=== PATIENT | male | born 1960 | race Caucasian/White ===

== ENCOUNTER 2018-04-05 10:06 | Inpatient (IN) ==
--- NOTE | 2018-04-05 10:23 | Emergency Department Note ---
Disposition Clinical Impression: Altered mental status Qualifiers: Altered mental status type: unspecified Qualified Code(s): R41.82 - Altered mental status, unspecified Disposition: Admitted As Inpatient Condition: Fair [facility] Provider[facility] - Forms: ED Satisfaction Letter Time of Disposition: 13:06 Altered Mental Status HPI - General Chief Complaint: ED Altered Mental Status Stated Complaint: confusion Time Seen by Provider: 04/05/18 10:09 Source: EMS Mode of arrival: EMS Limitations: altered mental status Nursing Notes Reviewed: Yes Vital Signs Reviewed: Yes - History of Present Illness HPI Narrative: 57 year old white male presents from the [facility] for [facility] for confusion. Cannot get any history from patient due to altered mental status. EMS states patient comes in for confusion with elevated blood pressure, they cannot provide any other history. - Related Data Home Medications Medication Instructions Recorded Confirmed Aspirin Enteric Coated [Aspirin EC] 81 mg PO DAILY 04/05/18 04/05/18 Benztropine [Cogentin] 1 mg PO BID 04/05/18 04/05/18 Bisacodyl [Woman's Laxative] 5 mg PO DAILY PRN 04/05/18 04/05/18 Cholecalciferol (D-3) [Vitamin D] 3,000 unit PO DAILY 04/05/18 04/05/18 Docusate [Colace] 100 mg PO BID 04/05/18 04/05/18 Lisinopril [Zestril] 10 mg PO DAILY 04/05/18 04/05/18 Multivitamin [One Daily Essential] 1 tab PO DAILY 04/05/18 04/05/18 Perphenazine 28 mg PO HS 04/05/18 04/05/18 Polyethylene Glycol 3350 [MiraLAX] 17 gm PO DAILY 04/05/18 04/05/18 amLODIPine [Norvasc] 5 mg PO DAILY 04/05/18 04/05/18 cloZAPine [Clozapine] 400 mg PO HS 04/05/18 04/05/18 cloZAPine [Clozaril] 150 mg PO QAM 04/05/18 04/05/18 clonazePAM [Klonopin] 1 mg PO HS PRN 04/05/18 04/05/18 hydrOXYzine HCl [Hydroxyzine HCl] 50 mg PO HS PRN 04/05/18 04/05/18 raNITIdine HCl [Zantac] 150 mg PO BID 04/05/18 04/05/18 Allergies Allergy/AdvReac Type Severity Reaction Status Date / Time bee venom protein (honey bee) Allergy Hives Verified 04/05/18 11:00 diphenhydramine AdvReac See Verified 04/05/18 11:00 [From Benadryl] Comments Limitations: ROS unobtainable due to patients medical condition Past Medical History - Past Medical History Medical history: Reports: no medical history - Social History Smoking Status: Unknown if ever smoked Alcohol use: Reports: unknown Drug use: Reports: unknown Physical Exam - General Limitations: altered mental status General appearance: alert, in no apparent distress, other (Patient smells of cigarette smoke) - Head Head exam: atraumatic, normocephalic, normal inspection - Eye Eye exam: Present: normal appearance, PERRL, EOMI - ENT ENT exam: normal exam, normal oropharynx, mucous membranes moist - Neck Neck exam: Present: normal inspection - Respiratory Respiratory exam: Present: normal lung sounds bilaterally - Cardiovascular Cardiovascular exam: Present: regular rate, normal rhythm, normal heart sounds - Abdominal Exam Abdominal exam: Present: soft, Non-Tender. Absent: tenderness, distention, guarding, rebound, rigidity - Extremities Exam Extremities exam: Present: normal inspection, full ROM, other (No asterixis ). Absent: tenderness, pedal edema - Neurological Exam Neurological exam: Present: alert. Absent: oriented X3 - Skin Skin exam: Present: warm, dry, intact, normal color Course Course Narrative: 57 year old male presents for altered mental status. There is no additional history. Patient is alert but not oriented, hemodynamically stable, and of non- toxic appearance. Will attempt to get history from [place]. Will do altered mental status workup including head CT and labwork. Will also order ativan and banana bag, in case patient turns out to be alcoholic. Providing nicotine patch due to patient's request. - Reevaluation(s) Reevaluation #1: Medical records from [place] indicate medical history of paranoid schizophrenia, diabetes type 2, COPD, HTN, HLD, GERD, psychogenic polydipsia, aptyalism, BPH, mixed urinary incontinence, femoral acetabular impingement, subclinical hyperthyroid, thyroid nodule, resting tremor, obesity, and cognitive disorder. Alcohol and cocaine dependence, in remission. Active medications from 02/25/2018 include perphenazine, clozapine, clonazepam, benztropine, albuterol, lisinopril , amlodipine, aspirin, ibuprofen, hydroxyzine, and ranitidine. CXR shows no acute process and labwork is negative. CT head shows no acute intracranial abnormality. Will admit to hospitalist. Spoke with Dr. Lowe who agreed to admit. Time: 13:04 Vital Signs Temperature 98.5 F 04/05/18 10:07 Pulse Rate 102 04/05/18 10:07 Respiratory Rate 18 04/05/18 10:07 Blood Pressure 163/95 04/05/18 10:07 O2 Sat by Pulse Oximetry 93 04/05/18 10:07 Temperature 98.5 F 04/05/18 10:07 Pulse Rate 102 04/05/18 10:07 Respiratory Rate 18 04/05/18 10:07 Blood Pressure 163/95 04/05/18 10:07 O2 Sat by Pulse Oximetry 93 04/05/18 10:07 Oxygen Delivery Oxygen Delivery Room Air Altered Mental Status - Medical Records Medical records reviewed: Yes I reviewed the patient's medical records. - Lab Data Lab results reviewed: Yes I reviewed the patient's lab results. Result diagrams: 04/05/18 10:16 Lab Results 04/05/18 04/05/18 04/05/18 Range/Units 10:16 10:16 10:16 WBC 13.8 H (4.3-11.1) K/mcL RBC 4.62 (4.19-5.50) M/mcL Hgb 14.0 (12.9-16.9) g/dL Hct 40.4 (37.5-50.1) % MCV 87.4 (83.0-100.0) fL MCH 30.3 (28.0-33.3) pg MCHC 34.7 (31.6-35.5) g/dL RDW 13.6 (11.5-14.5) % Plt Count 265 (140-400) K/mcL MPV 9.4 (9.4-12.4) fL Immature Gran % 0.8 (0-4) % Seg Neutrophils % 71.6 % Lymphocytes % 19.2 % Monocytes % 8.1 % Eosinophils % 0.0 % Basophils % 0.3 % Neutrophils # 9.9 H (1.6-8.9) K/mcL Lymphocytes # 2.7 (0.6-4.6) K/mcL Monocytes # 1.1 (0.0-1.3) K/mcL Eosinophils # 0.0 (0.0-0.6) K/mcL Basophils # 0.0 (0.0-0.2) K/mcL Lactic Acid 1.5 (0.5-2.2) mmol/L Ammonia 42 (16-53) mcmol/L - Radiology Data Radiology results reviewed: Yes I reviewed the patient's radiology results. CXR 04/05/2018. No acute abnormality. - EKG Data EKG attestation: Yes I reviewed and interpreted this EKG. EKG results narrative: EKG 04/05/2018 10:17. Sinus rhythm. Heart rate 96. No ST elevation or depression. No comparison EKG. TPA Checklist - LKW: 3-4.5 hrs Add. Warnings/Precautions Patient/family understanding: The patient/family members have been counseled and understood the risk, benefit , and alternatives of treatment.
[2018-04-05] MEDS ORDERED: *HR* LORazepam 2 MG/ML VIAL IVP ONE (10:34)
[2018-04-05] MEDS ORDERED: MVI, adult with vitamin K 10 ML in 0.9 % Sodium Chloride 1,000 ML IVC ONE (10:37)
[2018-04-05 10:44] LABS: Basophils % 0.3 %; Hematocrit 40.4 % (37.5-50.1); Immature Granulocytes % 0.8 % (0-4); Lymphocytes # 2.7 K/mcL (0.6-4.6); Lymphocytes % 19.2 %; Mean Corpuscular HGB Conc 34.7 g/dL (31.6-35.5); Mean Corpuscular Hemoglobin 30.3 pg (28.0-33.3); Mean Corpuscular Volume 87.4 fL (83.0-100.0); Mean Platelet Volume 9.4 fL (9.4-12.4); Monocytes # 1.1 K/mcL (0.0-1.3); Monocytes % 8.1 %; Neutrophils # 9.9 K/mcL (1.6-8.9); Platelet Count 265 K/mcL (140-400); Red Blood Count 4.62 M/mcL (4.19-5.50); Red Cell Distribution Width 13.6 % (11.5-14.5); Segmented Neutrophils % 71.6 %
[2018-04-05 10:51] LABS: Prothrombin Time 11.8 Seconds (9.4-12.1)
[2018-04-05 10:53] LABS: Activated Partial Thrombo Time 33.2 Seconds (26.0-36.0)
[2018-04-05 10:56] LABS: Acetaminophen < 10 mcg/mL (10-20); Alanine Aminotransferase 23 Units/L (7-52); Albumin 4.8 g/dL (3.5-5.7); Albumin/Globulin Ratio 1.8 (1.1-2.2); Alkaline Phosphatase 135 Units/L (34-104); Aspartate Amino Transferase 22 Units/L (13-39); BUN/Creatinine Ratio 12 (6-26); Bilirubin,Direct 0.1 mg/dL (0.0-0.2); Bilirubin,Indirect 0.3 mg/dL (0.0-1.2); Bilirubin,Total 0.4 mg/dL (0.3-1.0); Blood Urea Nitrogen 8 mg/dL (6-20); Calcium 9.6 mg/dL (8.6-10.3); Carbon Dioxide 24 mEq/L (23-29); Chloride 103 mEq/L (98-107); Ethanol < 10 mg/dL (Less than 10); Globulin 2.7 g/dL (2.4-3.5); Glucose 131 mg/dL (70-105); Osmolality,Calculated 284 (280-300); Potassium 3.7 mEq/L (3.5-5.1); Salicylate < 2.5 mg/dL (15.0-30.0); Sodium 137 mEq/L (136-145); Total Protein 7.5 g/dL (6.4-8.9); eGFR For Non-African Americans > 60 (> 60)
[2018-04-05 10:58] LABS: Troponin I < 0.03 ng/mL (< 0.04)
[2018-04-05 11:12] LABS: Bilirubin,Urine Negative (Negative); Blood,Urine Negative (Negative); Clarity,Urine Clear (Clear); Color,Urine Yellow (Yellow); Glucose,Urine (UA) Normal (Normal); Ketones,Urine Negative (Negative); Leukocyte Esterase,Urine Small (Negative); Nitrite,Urine Negative (Negative); Protein,Urine Negative (Neg-Trace); Specific Gravity,Urine 1.009 (1.010-1.025); Urobilinogen,Urine Normal (Normal)
[2018-04-05 11:13] LABS: Bacteria,Urine None Seen per hpf (None-Few); Hyaline Casts,Urine None Seen per lpf (None-Few); Squamous Epithelial Cell,Urine Many per lpf (None-Few); WBC,Urine 0-3 per hpf (0-3)
[2018-04-05 11:22] LABS: Amphetamine Screen,Urine Negative ng/mL (Cutoff=1000); Barbiturate Screen,Urine Negative ng/mL (Cutoff=200); Benzodiazepines Screen,Urine Negative ng/mL (Cutoff=200); Cannabinoid Screen,Urine Negative ng/mL (Cutoff = 50); Cocaine Screen,Urine Negative ng/mL (Cutoff= 300); Opiate Screen,Urine Negative ng/mL (Cutoff=300); Phencyclidine Screen,Urine Negative ng/mL (Cutoff=25)
[2018-04-05] MEDS: Nicotine 21 MG PATCH.TD24 TD SCH (12:02)
--- NOTE | 2018-04-05 12:15 | Emergency Department Note ---
Disposition Clinical Impression: Altered mental status Qualifiers: Altered mental status type: transient alteration of awareness Qualified Code(s) : R40.4 - Transient alteration of awareness Disposition: Admitted As Inpatient Forms: ED Satisfaction Letter General Adult HPI - General Chief complaint: ED Altered Mental Status Stated complaint: confusion Time Seen by Provider: 04/05/18 10:09 Source: EMS Mode of arrival: EMS Limitations: altered mental status - History of Present Illness Pain Scale: 0 - Related Data Allergies Allergy/AdvReac Type Severity Reaction Status Date / Time bee venom protein (honey bee) Allergy Hives Verified 04/05/18 11:00 diphenhydramine AdvReac See Verified 04/05/18 11:00 [From Benadryl] Comments Past Medical History - Past Medical History Medical history: Reports: no medical history Psychiatric history: Reports: schizophrenia - Social History Smoking Status: Unknown if ever smoked Alcohol use: Reports: unknown Drug use: Reports: unknown Physical Exam - General Limitations: altered mental status General appearance: alert, in no apparent distress, other (Patient smells of cigarette smoke) Course Vital Signs Temperature 98.5 F 04/05/18 10:07 Pulse Rate 102 04/05/18 10:07 Respiratory Rate 18 04/05/18 10:07 Blood Pressure 163/95 04/05/18 10:07 O2 Sat by Pulse Oximetry 93 04/05/18 10:07 Temperature 98.5 F 04/05/18 10:07 Pulse Rate 102 04/05/18 10:07 Respiratory Rate 18 04/05/18 10:07 Blood Pressure 163/95 04/05/18 10:07 O2 Sat by Pulse Oximetry 93 04/05/18 10:07 Oxygen Delivery Oxygen Delivery Room Air Medical Decision Making - Lab Data Result diagrams: 04/05/18 10:16 04/05/18 10:16 Lab Results 04/05/18 04/05/18 04/05/18 Range/Units 10:16 10:16 10:16 WBC 13.8 H (4.3-11.1) K/mcL RBC 4.62 (4.19-5.50) M/mcL Hgb 14.0 (12.9-16.9) g/dL Hct 40.4 (37.5-50.1) % MCV 87.4 (83.0-100.0) fL MCH 30.3 (28.0-33.3) pg MCHC 34.7 (31.6-35.5) g/dL RDW 13.6 (11.5-14.5) % Plt Count 265 (140-400) K/mcL MPV 9.4 (9.4-12.4) fL Immature Gran % 0.8 (0-4) % Seg Neutrophils % 71.6 % Lymphocytes % 19.2 % Monocytes % 8.1 % Eosinophils % 0.0 % Basophils % 0.3 % Neutrophils # 9.9 H (1.6-8.9) K/mcL Lymphocytes # 2.7 (0.6-4.6) K/mcL Monocytes # 1.1 (0.0-1.3) K/mcL Eosinophils # 0.0 (0.0-0.6) K/mcL Basophils # 0.0 (0.0-0.2) K/mcL PT 11.8 (9.4-12.1) Seconds INR 1.0 APTT 33.2 (26.0-36.0) Seconds Sodium 137 (136-145) mEq/L Potassium 3.7 (3.5-5.1) mEq/L Chloride 103 (98-107) mEq/L Carbon Dioxide 24 (23-29) mEq/L BUN 8 (6-20) mg/dL Creatinine 0.67 L (0.70-1.30) mg/dL Est GFR ( Amer) > 60 (> 60) Est GFR (Non-Af Amer) > 60 (> 60) BUN/Creatinine Ratio 12 (6-26) Glucose 131 H (70-105) mg/dL Calculated Osmolality 284 (280-300) Lactic Acid (0.5-2.2) mmol/L Calcium 9.6 (8.6-10.3) mg/dL Total Bilirubin 0.4 (0.3-1.0) mg/dL Direct Bilirubin 0.1 (0.0-0.2) mg/dL Indirect Bilirubin 0.3 (0.0-1.2) mg/dL AST 22 (13-39) Units/L ALT 23 (7-52) Units/L Alkaline Phosphatase 135 H (34-104) Units/L Ammonia (16-53) mcmol/L Troponin I < 0.03 (< 0.04) ng/mL Serum Total Protein 7.5 (6.4-8.9) g/dL Albumin 4.8 (3.5-5.7) g/dL Globulin 2.7 (2.4-3.5) g/dL Albumin/Globulin Ratio 1.8 (1.1-2.2) TSH 0.180 L (0.340-5.600) mcIU/mL Urine Color (Yellow) Urine Clarity (Clear) Urine pH (5.0-8.0) pH Units Ur Specific Dairy (1.010-1.025) Urine Protein (Neg-Trace) mg/dL Urine Glucose (UA) (Normal) mg/dL Urine Ketones (Negative) mg/dL Urine Blood (Negative) Urine Nitrite (Negative) Urine Bilirubin (Negative) Urine Urobilinogen (Normal) mg/dL Ur Leukocyte Esterase (Negative) Urine Microscopic RBC (0-3) per hpf Urine Microscopic WBC (0-3) per hpf Ur Squamous Epith Cells (None-Few) per lpf Urine Bacteria (None-Few) per hpf Hyaline Casts (None-Few) per lpf Ur Culture Indicated? (NO) Salicylates < 2.5 L (15.0-30.0) mg/dL Urine Opiates Screen (Qtkzsz=252) ng/mL Acetaminophen < 10 L (10-20) mcg/mL Ur Barbiturates Screen (Mwosrq=590) ng/mL Ur Phencyclidine Scrn (Cutoff=25) ng/mL Ur Amphetamines Screen (Slkhjy=2996) ng/mL U Benzodiazepines Scrn (Zyllty=572) ng/mL Urine Cocaine Screen (Cutoff= 300) ng/mL U Marijuana (THC) Screen (Cutoff = 50) ng/mL Ur Drug Screen Interp Ethyl Alcohol < 10 (Less than 10) mg/dL 04/05/18 04/05/18 04/05/18 Range/Units 10:16 10:16 11:05 WBC (4.3-11.1) K/mcL RBC (4.19-5.50) M/mcL Hgb (12.9-16.9) g/dL Hct (37.5-50.1) % MCV (83.0-100.0) fL MCH (28.0-33.3) pg MCHC (31.6-35.5) g/dL RDW (11.5-14.5) % Plt Count (140-400) K/mcL MPV (9.4-12.4) fL Immature Gran % (0-4) % Seg Neutrophils % % Lymphocytes % % Monocytes % % Eosinophils % % Basophils % % Neutrophils # (1.6-8.9) K/mcL Lymphocytes # (0.6-4.6) K/mcL Monocytes # (0.0-1.3) K/mcL Eosinophils # (0.0-0.6) K/mcL Basophils # (0.0-0.2) K/mcL PT (9.4-12.1) Seconds INR APTT (26.0-36.0) Seconds Sodium (136-145) mEq/L Potassium (3.5-5.1) mEq/L Chloride (98-107) mEq/L Carbon Dioxide (23-29) mEq/L BUN (6-20) mg/dL Creatinine (0.70-1.30) mg/dL Est GFR ( Amer) (> 60) Est GFR (Non-Af Amer) (> 60) BUN/Creatinine Ratio (6-26) Glucose (70-105) mg/dL Calculated Osmolality (280-300) Lactic Acid 1.5 (0.5-2.2) mmol/L Calcium (8.6-10.3) mg/dL Total Bilirubin (0.3-1.0) mg/dL Direct Bilirubin (0.0-0.2) mg/dL Indirect Bilirubin (0.0-1.2) mg/dL AST (13-39) Units/L ALT (7-52) Units/L Alkaline Phosphatase (34-104) Units/L Ammonia 42 (16-53) mcmol/L Troponin I (< 0.04) ng/mL Serum Total Protein (6.4-8.9) g/dL Albumin (3.5-5.7) g/dL Globulin (2.4-3.5) g/dL Albumin/Globulin Ratio (1.1-2.2) TSH (0.340-5.600) mcIU/mL Urine Color Yellow (Yellow) Urine Clarity Clear (Clear) Urine pH 8.0 (5.0-8.0) pH Units Ur Specific Dairy 1.009 L (1.010-1.025) Urine Protein Negative (Neg-Trace) mg/dL Urine Glucose (UA) Normal (Normal) mg/dL Urine Ketones Negative (Negative) mg/dL Urine Blood Negative (Negative) Urine Nitrite Negative (Negative) Urine Bilirubin Negative (Negative) Urine Urobilinogen Normal (Normal) mg/dL Ur Leukocyte Esterase Small H (Negative) Urine Microscopic RBC 3-5 H (0-3) per hpf Urine Microscopic WBC 0-3 (0-3) per hpf Ur Squamous Epith Cells Many H (None-Few) per lpf Urine Bacteria None Seen (None-Few) per hpf Hyaline Casts None Seen (None-Few) per lpf Ur Culture Indicated? NO. A (NO) Salicylates (15.0-30.0) mg/dL Urine Opiates Screen (Tcwdzr=968) ng/mL Acetaminophen (10-20) mcg/mL Ur Barbiturates Screen (Rtpnax=117) ng/mL Ur Phencyclidine Scrn (Cutoff=25) ng/mL Ur Amphetamines Screen (Mbqjxg=7774) ng/mL U Benzodiazepines Scrn (Mrwcnw=136) ng/mL Urine Cocaine Screen (Cutoff= 300) ng/mL U Marijuana (THC) Screen (Cutoff = 50) ng/mL Ur Drug Screen Interp Ethyl Alcohol (Less than 10) mg/dL 04/05/18 Range/Units 11:05 WBC (4.3-11.1) K/mcL RBC (4.19-5.50) M/mcL Hgb (12.9-16.9) g/dL Hct (37.5-50.1) % MCV (83.0-100.0) fL MCH (28.0-33.3) pg MCHC (31.6-35.5) g/dL RDW (11.5-14.5) % Plt Count (140-400) K/mcL MPV (9.4-12.4) fL Immature Gran % (0-4) % Seg Neutrophils % % Lymphocytes % % Monocytes % % Eosinophils % % Basophils % % Neutrophils # (1.6-8.9) K/mcL Lymphocytes # (0.6-4.6) K/mcL Monocytes # (0.0-1.3) K/mcL Eosinophils # (0.0-0.6) K/mcL Basophils # (0.0-0.2) K/mcL PT (9.4-12.1) Seconds INR APTT (26.0-36.0) Seconds Sodium (136-145) mEq/L Potassium (3.5-5.1) mEq/L Chloride (98-107) mEq/L Carbon Dioxide (23-29) mEq/L BUN (6-20) mg/dL Creatinine (0.70-1.30) mg/dL Est GFR ( Amer) (> 60) Est GFR (Non-Af Amer) (> 60) BUN/Creatinine Ratio (6-26) Glucose (70-105) mg/dL Calculated Osmolality (280-300) Lactic Acid (0.5-2.2) mmol/L Calcium (8.6-10.3) mg/dL Total Bilirubin (0.3-1.0) mg/dL Direct Bilirubin (0.0-0.2) mg/dL Indirect Bilirubin (0.0-1.2) mg/dL AST (13-39) Units/L ALT (7-52) Units/L Alkaline Phosphatase (34-104) Units/L Ammonia (16-53) mcmol/L Troponin I (< 0.04) ng/mL Serum Total Protein (6.4-8.9) g/dL Albumin (3.5-5.7) g/dL Globulin (2.4-3.5) g/dL Albumin/Globulin Ratio (1.1-2.2) TSH (0.340-5.600) mcIU/mL Urine Color (Yellow) Urine Clarity (Clear) Urine pH (5.0-8.0) pH Units Ur Specific Dairy (1.010-1.025) Urine Protein (Neg-Trace) mg/dL Urine Glucose (UA) (Normal) mg/dL Urine Ketones (Negative) mg/dL Urine Blood (Negative) Urine Nitrite (Negative) Urine Bilirubin (Negative) Urine Urobilinogen (Normal) mg/dL Ur Leukocyte Esterase (Negative) Urine Microscopic RBC (0-3) per hpf Urine Microscopic WBC (0-3) per hpf Ur Squamous Epith Cells (None-Few) per lpf Urine Bacteria (None-Few) per hpf Hyaline Casts (None-Few) per lpf Ur Culture Indicated? (NO) Salicylates (15.0-30.0) mg/dL Urine Opiates Screen Negative (Qrkozn=116) ng/mL Acetaminophen (10-20) mcg/mL Ur Barbiturates Screen Negative (Kqlnle=290) ng/mL Ur Phencyclidine Scrn Negative (Cutoff=25) ng/mL Ur Amphetamines Screen Negative (Zqfgic=3051) ng/mL U Benzodiazepines Scrn Negative (Aboeaj=503) ng/mL Urine Cocaine Screen Negative (Cutoff= 300) ng/mL U Marijuana (THC) Screen Negative (Cutoff = 50) ng/mL Ur Drug Screen Interp See Below Ethyl Alcohol (Less than 10) mg/dL Attestation Statement - Attestation Attestation: I examined this patient and my medical decision-making was reviewed with the Resident Physician. I agree with the documented findings, disposition and treatment plan as described except to the extent set forth below. 57 ryan old male prsents ot the ED from the [facility] with confusion and AMS. He is aleart ad disoreitned and there is concernd for ETOH withdrawl. He is having active hallucination at bedside with tactile sensations. He also has a history of schizophrenia. We will do AMS workup which has come back unremarkable aside form a mild hyperthyroidsim which is known from his medical history. Sarah will be admitted to medicine for ETOH withdrawl and
[2018-04-05] MEDS ORDERED: Naloxone 0.4 MG/ML INJ IVP PRN (13:26)
[2018-04-05] MEDS ORDERED: 0.9 % Sodium Chloride 1,000 ML IVC SCH (13:30)
[2018-04-05] MEDS ORDERED: clonazePAM 1 MG TABLET PO PRN (13:35)
[2018-04-05] MEDS ORDERED: hydrOXYzine pamoate 25 MG CAPSULE PO PRN (13:35)
--- NOTE | 2018-04-05 14:01 | Internal Med History&Physical ---
<ErinMelquiades Eason - Last Filed: 04/05/18 15:02> Date of Encounter: 04/05/18 Time of Encounter: 12:30 Internal Medicine - H&P: HPI Chief complaint: AMS Admitted From: Emergency Dept Plans for Post Hospital Care: Home History of present illness: Mr. Crandall is a 57 year old male from the [place] w/PMH of essential tremors , DM, HTN, HLD, COPD, GERD, hyperthyroidism, and schizophrenia according to [place] records that were reviewed. Pt. is altered and offers minimal intelligible answers on exam. Most conversation is word salad or simply repeating what is asked of him. Pt. does report that he has been vomiting and has not felt well. Length of time unclear. According to [place] records, pt. has hx of previous alcohol and cocaine abuse but is in remission. Pt. was diagnosed w/schizophrenia in his early 20s w/familial hx of mental health issues. Most PMH information taken from [place] records. Past Med Surg Social Fam HX - Past Medical History Source: patient, old records reviewed Medical history: COPD, diabetes, GERD, hyperlipidemia, hypertension, other ( Hyperthyroidism) Psychiatric history: schizophrenia - Past Surgical History Surgical History: non-contributory - Social History Smoking Status: Unknown if ever smoked Alcohol use: unknown Drug use: unknown Occupational status: unemployed Current living situation: Home Activity Level: Independent ambulation Recent Out of Country Travel Within the Last 8 Weeks: No Exposure or Possible Exposure to Illness During Travel: No - Family History Father History Unknown: Yes Race: Family Member Ethnicity: Non- Living Status: Mother History Unknown: Yes Race: Family Member Ethnicity: Non- Living Status: Brother Race: Family Member Ethnicity: Non- Living Status: Cause of : Suicide Hx Family Psychosocial Disorders: Yes (Depression) Sister History Unknown: Yes Race: Family Member Ethnicity: Non- Living Status: Still Living Internal Medicine - H&P: Meds Aspirin Enteric Coated [Aspirin EC] 81 mg PO DAILY 04/05/18 [History] Benztropine [Cogentin] 1 mg PO BID 04/05/18 [History] Bisacodyl [Woman's Laxative] 5 mg PO DAILY PRN 04/05/18 [History] Cholecalciferol (D-3) [Vitamin D] 3,000 unit PO DAILY 04/05/18 [History] Docusate [Colace] 100 mg PO BID 04/05/18 [History] Lisinopril [Zestril] 10 mg PO DAILY 04/05/18 [History] Multivitamin [One Daily Essential] 1 tab PO DAILY 04/05/18 [History] Perphenazine 28 mg PO HS 04/05/18 [History] Polyethylene Glycol 3350 [MiraLAX] 17 gm PO DAILY 04/05/18 [History] amLODIPine [Norvasc] 5 mg PO DAILY 04/05/18 [History] cloZAPine [Clozapine] 400 mg PO HS 04/05/18 [History] cloZAPine [Clozaril] 150 mg PO QAM 04/05/18 [History] clonazePAM [Klonopin] 1 mg PO HS PRN 04/05/18 [History] hydrOXYzine HCl [Hydroxyzine HCl] 50 mg PO HS PRN 04/05/18 [History] raNITIdine HCl [Zantac] 150 mg PO BID 04/05/18 [History] 3 Allergy/AdvReac Type Severity Reaction Status Date / Time bee venom protein (honey bee) Allergy Hives Verified 04/05/18 11:00 diphenhydramine AdvReac See Verified 04/05/18 11:00 [From Benadryl] Comments ROS unobtainable: due to mental status All Systems PM: A 10-system review of systems was performed and is negative for pertinent findings except as documented above in the HPI. - Constitutional Vitals: Temp Pulse Resp BP Pulse Ox 98.5 F 93 18 157/102 96 04/05/18 10:07 04/05/18 13:39 04/05/18 13:39 04/05/18 13:39 04/05/18 13:39 General appearance: Present: A&O X 1, disheveled, no acute distress, obese, answers questions appropriately - Head Head exam: Present: atraumatic, normocephalic - Eye Eye exam: Present: PERRL, conjuntiva pink, sclera anicteric Pupils: Present: PERRL - ENT ENT exam: Present: normal exam - Neck Neck exam general surgery: Present: normal inspection, supple, trachea midline. Absent: lymphadenopathy - Respiratory Respiratory exam: Present: CTAB. Absent: accessory muscle use, rales, rhonchi, wheezes - Cardiovascular Cardiovascular exam: Present: RRR, +S1, +S2. Absent: diastolic murmur, gallop, rubs, systolic murmur - GI/Abdominal GI/Abdominal exam: Present: normal bowel sounds, soft, no peritoneal signs. Absent: distended, tenderness - Rectal Rectal exam: Present: deferred - Additional comments: exam deferred. - Extremities Exam Extremities exam: Present: warm, radial pulses palpable and symmetrical. Absent : calf tenderness, cyanotic - Back Exam Back exam: Present: normal inspection - Neurological Exam Neurological exam: Present: altered - Psychiatric Psychiatric exam: Present: flat affect - Skin Skin exam: Present: dry, intact Internal Med - H&P Results - Labs CBC & Chem 7: 04/05/18 10:16 04/05/18 10:16 - EKG Data EKG shows normal: sinus rhythm - EKG Data Prior EKG available for review: no EKG comments: 04/05/18 14:05 EKG dated 04/04/18 shows sinus rhythm with nonspecific T-wave abnormality. - Diagnostic Studies Chest x-ray Additional comments: Impressions Chest X-Ray 04/05/18 10:16 IMPRESSION: No acute cardiopulmonary process. D/ / Jose Yanez MD / Jose Yanez MD Interpreting Provider: Jose Yanez MD CT scan - head Additional comments: Impressions Head CT 04/05/18 10:17 IMPRESSION: No acute intracranial abnormality. Mild periventricular white matter disease, likely due to small-vessel ischemic change. D/ / Carmelo Romano MD / Carmelo Romano MD Interpreting Provider: Carmelo Romano MD - Assessment and plan (1) Altered mental status Current Visit: Yes Status: Acute Assessment and plan: Acute AMS. Pt. was brought [place] today d/t current sx. Pt. offers minimally intelligible answers or information on exam. [facility]x of previous [facility] and [facility] abuse w/pt. being in remission. Urine tox screen negative. Blood alcohol level <10. Concern for possible withdrawal d/t current sx so CIWA scale and neuro checks ordered. Current sx may be d/t pt. not being compliant w/schizophrenia medications as evidenced by current word salad. CT of the head shows no intracranial abnormality. MRI of the head/brain ordered to rule out an infarct or ischemia. Elevate head of bed. Aspiration precautions with meals. Bedside swallow eval ordered and patient to be nothing by mouth until passed. Falls/safety precautions and up with assist only. Consult psychiatry ordered and discussed with 1A with recommendation that psychiatrist will see patient tomorrow. Patient discussed with Dr. Lowe who agrees with plan of care. Patient is moderate risk for further morbidity and decline due to current altered mental status of unknown etiology, current leukocytosis which may represent an infective process, limited information regarding history and duration of current symptoms, history, and risk factors. Inpatient. Qualifiers: Altered mental status type: unspecified Qualified Code(s): R41.82 - Altered mental status, unspecified (2) Leukocytosis Current Visit: Yes Status: Acute Assessment and plan: Acute leukocytosis w/WBC of 13.8 on admission. Pt. reports not feeling well for unknown period of time. Blood cultures x2 ordered. U/A not indicative for UTI. Monitor pt., VS, and f/u labs for signs of increasing infection. Qualifiers: Leukocytosis type: other Qualified Code(s): D72.828 - Other elevated white blood cell count (3) Schizophrenia Current Visit: Yes Status: Chronic Assessment and plan: Hx of chronic schizophrenia. [facility] was diagnosed in his early 20s. Also states that there is a long family hx of mental health issues. Current AMS may be d/t pt. not taking his medications for schizophrenia. Continue clonazepam, clozapine and perphenazine at bedtime, and Clozaril in a.m. Psych consult ordered. Qualifiers: Schizophrenia type: other Qualified Code(s): F20.89 - Other schizophrenia; F20.8 - Other schizophrenia (4) HTN (hypertension) Current Visit: Yes Status: Chronic Assessment and plan: Hx of chronic HTN. Monitor pt. and VS. Continue patient's Norvasc and lisinopril. Qualifiers: Hypertension type: essential hypertension Qualified Code(s): I10 - Essential (primary) hypertension (5) GERD (gastroesophageal reflux disease) Current Visit: Yes Status: Chronic Assessment and plan: Hx of chronic GERD. Continue pts. PO Zantac. IVP Zofran 4 mg every 6 hours when necessary for nausea and vomiting. Qualifiers: Esophagitis presence: esophagitis presence not specified Qualified Code(s) : K21.9 - Gastro-esophageal reflux disease without esophagitis (6) Diabetes Current Visit: Yes Status: Chronic Assessment and plan: Hx of DM according to [place] records. No current oral or insulin use. BG checks ACHS. Will add correction insulin and hypoglycemic protocol if warranted. A1c in a.m. labs. Qualifiers: Diabetes mellitus type: type 2 Diabetes mellitus intermediate card tender insulin use: unspecified intermediate card tender insulin use status Diabetes mellitus complication status : with unspecified complications Qualified Code(s): E11.8 - Type 2 diabetes mellitus with unspecified complications (7) HLD (hyperlipidemia) Current Visit: Yes Status: Chronic Assessment and plan: Hx of chronic HLD. Pt. not currently on statin according to [place] records. Lipid panel in a.m. labs. Consider adding Lipitor to pts. home medications on discharge if warranted by lipid panel results. Qualifiers: Hyperlipidemia type: pure hypercholesterolemia Qualified Code(s): E78.00 - Pure hypercholesterolemia, unspecified; E78.0 - Pure hypercholesterolemia (8) Chronic constipation Current Visit: Yes Status: Chronic Assessment and plan: Hx of chronic constipation, most likely d/t medications. Monitor I&O and continue patient's Bisacodyl, Colace and MiraLAX. (9) DVT prophylaxis Current Visit: Yes Status: Acute Assessment and plan: Anti-embolic hose for DVT prophylaxis to avoid agitating pt. w/SQ injections. (10) Essential tremor Current Visit: Yes Status: Chronic Assessment and plan: Hx of essential tremors. Continue pts. Cogentin. - Time Spent With Patient Total time spent is greater than 50% in coordination of care (as documented) at patient's floor/unit and/or counseling patient: Greater than 35 minutes <Gustavo Lowe - Last Filed: 04/06/18 08:21> Date of Encounter: 04/06/18 Internal Medicine - H&P: HPI History of present illness: Mr. Crandall is a 57 year old male All Systems PM: A 10-system review of systems was performed and is negative for pertinent findings except as documented above in the HPI. - Constitutional Vitals: Temp Pulse Resp BP Pulse Ox 98.1 F 85 20 161/90 95 04/06/18 06:44 04/06/18 06:44 04/06/18 06:44 04/06/18 06:44 04/06/18 06:44 Internal Med - H&P Results - Labs CBC & Chem 7: 04/06/18 06:33 04/05/18 10:16 Labs: Short CBC 04/06/18 Range/Units 06:33 WBC 9.6 (4.3-11.1) K/mcL Hgb 12.5 L D (12.9-16.9) g/dL Hct 36.7 L (37.5-50.1) % Plt Count 227 (140-400) K/mcL Neutrophils # 6.2 (1.6-8.9) K/mcL - Attending Attestation Discussed patient with MIHAI and agree with assessment and plan as above. Briefly, patient is a 57-year-old male with past medical history significant for schizophrenia and alcohol/drug abuse who presented to the ER with altered mental status. On examination, patient was alert and oriented but repeated my exam questions and was having delusions; evidence of a psychiatric component which will be needed to be evaluated by psychiatry. CT of the brain negative for acute findings and MRI pending; suspect leukocytosis reactive but will monitor. Await recommendations from psychiatry. - Assessment and plan (1) Altered mental status Current Visit: Yes Status: Acute Qualifiers: Altered mental status type: unspecified Qualified Code(s): R41.82 - Altered mental status, unspecified (2) HTN (hypertension) Current Visit: Yes Status: Chronic Qualifiers: Hypertension type: essential hypertension Qualified Code(s): I10 - Essential (primary) hypertension (3) GERD (gastroesophageal reflux disease) Current Visit: Yes Status: Chronic Qualifiers: Esophagitis presence: esophagitis presence not specified Qualified Code(s) : K21.9 - Gastro-esophageal reflux disease without esophagitis (4) Diabetes Current Visit: Yes Status: Chronic Qualifiers: Diabetes mellitus type: type 2 Diabetes mellitus chcf insulin use: unspecified chcf insulin use status Diabetes mellitus complication status : with unspecified complications Qualified Code(s): E11.8 - Type 2 diabetes mellitus with unspecified complications (5) HLD (hyperlipidemia) Current Visit: Yes Status: Chronic Qualifiers: Hyperlipidemia type: pure hypercholesterolemia Qualified Code(s): E78.00 - Pure hypercholesterolemia, unspecified; E78.0 - Pure hypercholesterolemia (6) Chronic constipation Current Visit: Yes Status: Chronic (7) DVT prophylaxis Current Visit: Yes Status: Acute (8) Schizophrenia Current Visit: Yes Status: Chronic Qualifiers: Schizophrenia type: other Qualified Code(s): F20.89 - Other schizophrenia; F20.8 - Other schizophrenia (9) Leukocytosis Current Visit: Yes Status: Acute Qualifiers: Leukocytosis type: other Qualified Code(s): D72.828 - Other elevated white blood cell count (10) Essential tremor Current Visit: Yes Status: Chronic - Time Spent With Patient Total time spent is greater than 50% in coordination of care (as documented) at patient's floor/unit and/or counseling patient:
[2018-04-05] MEDS ORDERED: Ondansetron 4 MG/2 ML VIAL IVP PRN (14:20)
[2018-04-05] MEDS: Famotidine 20 MG TABLET PO SCH (20:04)
[2018-04-05] MEDS: cloZAPine 100 MG TABLET PO SCH (20:05)
[2018-04-05] MEDS: Perphenazine 8 MG TABLET PO SCH (20:07)
[2018-04-06 07:12] LABS: Basophils % 0.3 %; Hematocrit 36.7 % (37.5-50.1); Hemoglobin 12.5 g/dL (12.9-16.9); Immature Granulocytes % 0.3 % (0-4); Lymphocytes # 2.2 K/mcL (0.6-4.6); Lymphocytes % 23.1 %; Mean Corpuscular HGB Conc 34.1 g/dL (31.6-35.5); Mean Corpuscular Hemoglobin 29.3 pg (28.0-33.3); Mean Corpuscular Volume 85.9 fL (83.0-100.0); Mean Platelet Volume 9.3 fL (9.4-12.4); Monocytes # 1.1 K/mcL (0.0-1.3); Monocytes % 11.2 %; Neutrophils # 6.2 K/mcL (1.6-8.9); Platelet Count 227 K/mcL (140-400); Red Blood Count 4.27 M/mcL (4.19-5.50); Red Cell Distribution Width 13.5 % (11.5-14.5); Segmented Neutrophils % 65.1 %
[2018-04-06 07:40] LABS: Estimated Average Glucose 120 mg/dl; Hemoglobin A1C 5.8 %
[2018-04-06] MEDS: Famotidine 20 MG TABLET PO SCH ×2 (07:57→19:56)
[2018-04-06] MEDS: Cholecalciferol (D-3) 1,000 UNIT TABLET PO SCH (07:57)
[2018-04-06] MEDS: Aspirin Enteric Coated 81 MG Tablet PO SCH (07:57)
[2018-04-06] MEDS: Lisinopril 20 MG TABLET PO SCH (07:57)
[2018-04-06] MEDS: cloZAPine 100 MG TABLET PO SCH ×2 (07:58→19:56)
[2018-04-06] MEDS: Multivit/Ca/Min/Fe/FA 1 TAB TABLET PO SCH (07:59)
[2018-04-06] MEDS: amLODIPine 5 MG TABLET PO SCH (07:59)
[2018-04-06] MEDS: Nicotine 21 MG PATCH.TD24 TD SCH (08:00)
[2018-04-06 09:51] LABS: Alanine Aminotransferase 15 Units/L (7-52); Albumin 3.4 g/dL (3.5-5.7); Albumin/Globulin Ratio 1.5 (1.1-2.2); Alkaline Phosphatase 95 Units/L (34-104); Aspartate Amino Transferase 16 Units/L (13-39); BUN/Creatinine Ratio 13 (6-26); Bilirubin,Total 0.3 mg/dL (0.3-1.0); Blood Urea Nitrogen 6 mg/dL (6-20); Calcium 7.3 mg/dL (8.6-10.3); Carbon Dioxide 19 mEq/L (23-29); Chloride 114 mEq/L (98-107); Chol/HDL Ratio 4.4 (0-4.9); Cholesterol 115 mg/dL (< 200); Globulin 2.2 g/dL (2.4-3.5); Glucose 91 mg/dL (70-105); HDL Cholesterol 26 mg/dL (40-59); LDL Cholesterol,Calculated 65 mg/dL (0-99); Magnesium 1.6 mg/dL (1.6-2.6); Osmolality,Calculated 287 (280-300); Phosphorous 3.2 mg/dL (2.7-4.5); Sodium 140 mEq/L (136-145); Total Protein 5.6 g/dL (6.4-8.9); Triglycerides 118 mg/dL (< 150); eGFR For Non-African Americans > 60 (> 60)
--- NOTE | 2018-04-06 12:40 | Consult Note ---
Date of Encounter: 04/06/18 Time of Encounter: 12:32 Assessment & Recommendation (1) Schizophrenia Current visit: Yes Status: Chronic Assessment & Recommendation: Would ensure client has been compliant with home meds before restarting Clozapine at high doses due to risk of agranulocytosis after someone has been off this medication for a while. There is also a risk of myocarditis with Clozapine so may want to rule this out as a source of mental status change if nothing else found. Would be good to talk to someone at the [facility] who knows his baseline and degree of compliance. Client does not present as a deliberate danger to himself or others but without additional information it is hard to know what his normal degree of functioning is. Qualifiers: Schizophrenia type: other Qualified Code(s): F20.89 - Other schizophrenia; F20.8 - Other schizophrenia (2) Altered mental status Current visit: Yes Status: Acute Qualifiers: Altered mental status type: unspecified Qualified Code(s): R41.82 - Altered mental status, unspecified History of Present Illness Requesting Physician: America Freire CNP Reason for consult: [facility] History of present illness: Mr. Crandall is a 57 year old male who presented from the [facility] with an altered mental status. Known history of Schizophrenia but no other records available at this time. On eval today client is alert but he is difficult to understand. He is oriented to place and date but not situation. States he is in [place] because he has AIDS. Most of his speech is rather unintelligible. He mumbles and his thoughts are disorganized. No one at bedside to provide clarifying information. Client does state he goes in daily to pick up worker his meds. He is aware that he takes medications for mental health reasons. The only one he could remember is Trilafon but he recognized Clozapine when this technical writer stated it. Unclear if he has been compliant or what his system of med delivery is. Client states he picks up meds daily but he is an unreliable historian. Would be best to speak to someone at the facility he resides at. Clozapine can be dangerous to restart at high doses if client has been noncompliant for a period of time. There is also a risk of myocarditis with Clozapine so may want to rule this out as a possible source of mental status change. Client does not appear to be a deliberate danger to himself or others but additional information about his baseline functioning would be helpful. CC: America Freire CNP Past Med Surg Social Fam HX - Past Medical History Medical history: COPD, diabetes, GERD, hyperlipidemia, hypertension, other - Past Psychiatric History Psychiatric history: Reports: schizophrenia Family psychiatric history: Unknown Family History of Suicide: Unknown - Past Surgical History Surgical History: non-contributory - Social History Smoking Status: Current every day smoker Alcohol use: unknown Drug use: unknown - Family History Father History Unknown: Yes Race: Family Member Ethnicity: Non- Living Status: Mother History Unknown: Yes Race: Family Member Ethnicity: Non- Living Status: Brother Race: Family Member Ethnicity: Non- Living Status: Cause of : Suicide Hx Family Psychosocial Disorders: Yes (Depression) Sister History Unknown: Yes Race: Family Member Ethnicity: Non- Living Status: Still Living Medications & Allergies Aspirin Enteric Coated [Aspirin EC] 81 mg PO DAILY 04/05/18 [History] Benztropine [Cogentin] 1 mg PO BID 04/05/18 [History] Bisacodyl [Woman's Laxative] 5 mg PO DAILY PRN 04/05/18 [History] Cholecalciferol (D-3) [Vitamin D] 3,000 unit PO DAILY 04/05/18 [History] Docusate [Colace] 100 mg PO BID 04/05/18 [History] Lisinopril [Zestril] 10 mg PO DAILY 04/05/18 [History] Multivitamin [One Daily Essential] 1 tab PO DAILY 04/05/18 [History] Perphenazine 28 mg PO HS 04/05/18 [History] Polyethylene Glycol 3350 [MiraLAX] 17 gm PO DAILY 04/05/18 [History] amLODIPine [Norvasc] 5 mg PO DAILY 04/05/18 [History] cloZAPine [Clozapine] 400 mg PO HS 04/05/18 [History] cloZAPine [Clozaril] 150 mg PO QAM 04/05/18 [History] clonazePAM [Klonopin] 1 mg PO HS PRN 04/05/18 [History] hydrOXYzine HCl [Hydroxyzine HCl] 50 mg PO HS PRN 04/05/18 [History] raNITIdine HCl [Zantac] 150 mg PO BID 04/05/18 [History] 3 Allergy/AdvReac Type Severity Reaction Status Date / Time bee venom protein (honey bee) Allergy Hives Verified 04/05/18 11:00 diphenhydramine AdvReac See Verified 04/05/18 11:00 [From Benadryl] Comments Review of Systems Constitutional: Denies: fever, chills, weakness, weight change Eyes: Denies: eye pain, vision change Ears, Nose, Throat: Denies: ear pain, throat pain, dental pain, hearing loss, congestion Cardiovascular: Denies: chest pain, palpitations, dyspnea on exertion Respiratory: Denies: cough, dyspnea, wheezes Gastrointestinal: Denies: abdominal pain, nausea, vomiting, diarrhea, constipation Genitourinary male: Denies: urgency, dysuria, frequency, genital lesions Musculoskeletal: Denies: joint swelling, joint pain Integumentary: Denies: rash, lesions, pruritus Neurological: Denies: headache, weakness, numbness, memory loss Endocrine: Denies: fatigue, heat or cold intolerance Hematologic/Lymphatic: Denies: easy bruising, lymphadenopathy Allergic/Immunologic: Denies: urticaria, itchy eyes Psychiatry Exam - Constitutional Vitals: Temp Pulse Resp BP Pulse Ox 97.8 F 81 16 147/86 94 04/06/18 11:29 04/06/18 11:29 04/06/18 11:29 04/06/18 11:29 04/06/18 11:29 General appearance: obese - Musculoskeletal Gait: other Station: relaxed Strength & Tone: normal for patient - Psychiatric Patient Orientation: Yes Person, Yes Time, Yes Place Level of alertness: Alert Behavior: calm, cooperative Psychomotor activity: Normal Eye Contact: Maintains Eye Contact Mood Description: Other Affect description: blunted Speech Volume: No variation in volume Speech pattern: mumbled Language & Vocabulary: consistent with education Thought Process: Loose Associations, Disorganized Thought Content: No Suicidal ideation, No Homicidal ideation Perceptual Disturbances: Yes Reacting to internal stimuli Attention Span Ability: Capable of Focused Attention Memory Description: Immediate Impaired, Recent Impaired, Remote Impaired Patient Reliability: Not Reliable Historian Fund of knowledge: Yes below average Intelligence Estimate: Average Judgment: Limited Insight: Partial Results - Labs Labs: Laboratory Last Values WBC 9.6 K/mcL (4.3-11.1) 04/06/18 06:33 RBC 4.27 M/mcL (4.19-5.50) 04/06/18 06:33 Hgb 12.5 g/dL (12.9-16.9) L D 04/06/18 06:33 Hct 36.7 % (37.5-50.1) L 04/06/18 06:33 MCV 85.9 fL (83.0-100.0) 04/06/18 06:33 MCH 29.3 pg (28.0-33.3) 04/06/18 06:33 MCHC 34.1 g/dL (31.6-35.5) 04/06/18 06:33 RDW 13.5 % (11.5-14.5) 04/06/18 06:33 Plt Count 227 K/mcL (140-400) 04/06/18 06:33 MPV 9.3 fL (9.4-12.4) L 04/06/18 06:33 Immature Gran % 0.3 % (0-4) 04/06/18 06:33 Seg Neutrophils % 65.1 % 04/06/18 06:33 Lymphocytes % 23.1 % 04/06/18 06:33 Monocytes % 11.2 % 04/06/18 06:33 Eosinophils % 0.0 % 04/06/18 06:33 Basophils % 0.3 % 04/06/18 06:33 Neutrophils # 6.2 K/mcL (1.6-8.9) 04/06/18 06:33 Lymphocytes # 2.2 K/mcL (0.6-4.6) 04/06/18 06:33 Monocytes # 1.1 K/mcL (0.0-1.3) 04/06/18 06:33 Eosinophils # 0.0 K/mcL (0.0-0.6) 04/06/18 06:33 Basophils # 0.0 K/mcL (0.0-0.2) 04/06/18 06:33 PT 11.8 Seconds (9.4-12.1) 04/05/18 10:16 INR 1.0 04/05/18 10:16 APTT 33.2 Seconds (26.0-36.0) 04/05/18 10:16 Sodium 140 mEq/L (136-145) 04/06/18 06:33 Potassium 3.0 mEq/L (3.5-5.1) L 04/06/18 06:33 Chloride 114 mEq/L (98-107) H 04/06/18 06:33 Carbon Dioxide 19 mEq/L (23-29) L 04/06/18 06:33 BUN 6 mg/dL (6-20) 04/06/18 06:33 Creatinine 0.45 mg/dL (0.70-1.30) L 04/06/18 06:33 Est GFR ( Amer) > 60 (> 60) 04/06/18 06:33 Est GFR (Non-Af Amer) > 60 (> 60) 04/06/18 06:33 BUN/Creatinine Ratio 13 (6-26) 04/06/18 06:33 Glucose 91 mg/dL (70-105) 04/06/18 06:33 POC Glucose 105 mg/dL (70-99) H 04/05/18 16:05 Est Mean Plasma Glucose 120 mg/dl 04/06/18 06:33 Hemoglobin A1c 5.8 % (-5.6) H 04/06/18 06:33 Calculated Osmolality 287 (280-300) 04/06/18 06:33 Lactic Acid 1.5 mmol/L (0.5-2.2) 04/05/18 10:16 Calcium 7.3 mg/dL (8.6-10.3) L 04/06/18 06:33 Phosphorus 3.2 mg/dL (2.7-4.5) 04/06/18 06:33 Magnesium 1.6 mg/dL (1.6-2.6) 04/06/18 06:33 Total Bilirubin 0.3 mg/dL (0.3-1.0) 04/06/18 06:33 Direct Bilirubin 0.1 mg/dL (0.0-0.2) 04/05/18 10:16 Indirect Bilirubin 0.3 mg/dL (0.0-1.2) 04/05/18 10:16 AST 16 Units/L (13-39) 04/06/18 06:33 ALT 15 Units/L (7-52) 04/06/18 06:33 Alkaline Phosphatase 95 Units/L (34-104) 04/06/18 06:33 Ammonia 42 mcmol/L (16-53) 04/05/18 10:16 Troponin I < 0.03 ng/mL (< 0.04) 04/05/18 10:16 Serum Total Protein 5.6 g/dL (6.4-8.9) L 04/06/18 06:33 Albumin 3.4 g/dL (3.5-5.7) L 04/06/18 06:33 Globulin 2.2 g/dL (2.4-3.5) L 04/06/18 06:33 Albumin/Globulin Ratio 1.5 (1.1-2.2) 04/06/18 06:33 Triglycerides 118 mg/dL (< 150) 04/06/18 06:33 Cholesterol 115 mg/dL (< 200) 04/06/18 06:33 LDL Cholesterol, Calc 65 mg/dL (0-99) 04/06/18 06:33 VLDL Cholesterol, Calc 24 mg/dL (< 31) 04/06/18 06:33 HDL Cholesterol 26 mg/dL (40-59) L 04/06/18 06:33 Cholesterol/HDL Ratio 4.4 (0-4.9) 04/06/18 06:33 TSH 0.180 mcIU/mL (0.340-5.600) L 04/05/18 10:16 Urine Color Yellow (Yellow) 04/05/18 11:05 Urine Clarity Clear (Clear) 04/05/18 11:05 Urine pH 8.0 pH Units (5.0-8.0) 04/05/18 11:05 Ur Specific [place] 1.009 (1.010-1.025) L 04/05/18 11:05 Urine Protein Negative mg/dL (Neg-Trace) 04/05/18 11:05 Urine Glucose (UA) Normal mg/dL (Normal) 04/05/18 11:05 Urine Ketones Negative mg/dL (Negative) 04/05/18 11:05 Urine Blood Negative (Negative) 04/05/18 11:05 Urine Nitrite Negative (Negative) 04/05/18 11:05 Urine Bilirubin Negative (Negative) 04/05/18 11:05 Urine Urobilinogen Normal mg/dL (Normal) 04/05/18 11:05 Ur Leukocyte Esterase Small (Negative) H 04/05/18 11:05 Urine Microscopic RBC 3-5 per hpf (0-3) H 04/05/18 11:05 Urine Microscopic WBC 0-3 per hpf (0-3) 04/05/18 11:05 Ur Squamous Epith Cells Many per lpf (None-Few) H 04/05/18 11:05 Urine Bacteria None Seen per hpf (None-Few) 04/05/18 11:05 Hyaline Casts None Seen per lpf (None-Few) 04/05/18 11:05 Ur Culture Indicated? NO. (NO) A 04/05/18 11:05 Salicylates < 2.5 mg/dL (15.0-30.0) L 04/05/18 10:16 Urine Opiates Screen Negative ng/mL (Vfhrar=117) 04/05/18 11:05 Acetaminophen < 10 mcg/mL (10-20) L 04/05/18 10:16 Ur Barbiturates Screen Negative ng/mL (Zsyjeb=786) 04/05/18 11:05 Ur Phencyclidine Scrn Negative ng/mL (Cutoff=25) 04/05/18 11:05 Ur Amphetamines Screen Negative ng/mL (Tclldr=4631) 04/05/18 11:05 U Benzodiazepines Scrn Negative ng/mL (Cwsjgp=196) 04/05/18 11:05 Urine Cocaine Screen Negative ng/mL (Cutoff= 300) 04/05/18 11:05 U Marijuana (THC) Screen Negative ng/mL (Cutoff = 50) 04/05/18 11:05 Ur Drug Screen Interp See Below 04/05/18 11:05 Ethyl Alcohol < 10 mg/dL (Less than 10) 04/05/18 10:16 Consult Discharge Plan - Plan [facility]errals: [facility]Primary Care Provider[facility] -
[2018-04-06] MEDS ORDERED: *HR* LORazepam 2 MG/ML VIAL IVP PRN ×3 (15:32→15:40)
[2018-04-06] MEDS ORDERED: Calcium Gluconate 2,000 MG in 0.9 % Sodium Chloride 100 ML IVPB ONE (15:37)
--- NOTE | 2018-04-06 15:49 | Internal Med Progress Note ---
Hospitalist Progress Note - Encounter Date of Encounter: 04/06/18 Time of Encounter: 09:50 - Subjective Interval History: Patient was seen and assessed at bedside at 9:50 AM. At times he is alert and oriented and, at other times he inserts and appropriate comments into conversation. He discusses Stefano Crowder winning a championship extensively, but is able to state his adress and is alert and oriented x 3. He states that he has to go home by Saturday ; he has a job interview on Saturday a.m. He states that he lost his job a few weeks ago due to government cutbacks. I returned to see him later in the day and he seems a bit more confused and his speech is more nonsensical than previously. He has been evaluated by psychiatry and states that he wants to go home. We are going to try to reach someone at [facility] to discuss what his baseline is prior to discharge. - Exam Vitals: Temp Pulse Resp BP Pulse Ox 98.1 F 95 20 176/104 98 04/06/18 15:33 04/06/18 15:33 04/06/18 15:33 04/06/18 15:33 04/06/18 15:33 - Assessment and Plan (1) Altered mental status Current Visit: Yes Status: Acute (2) HTN (hypertension) Current Visit: Yes Status: Chronic Assessment and Plan: Chronic. Continue patient's Norvasc and lisinopril. (3) GERD (gastroesophageal reflux disease) Current Visit: Yes Status: Chronic Assessment and Plan: Chronic. Continue home medications. (4) Diabetes Current Visit: Yes Status: Chronic Assessment and Plan: [facility]. No current oral or insulin use. A1c 5.8. Continue hypoglycemic protocol. (5) HLD (hyperlipidemia) Current Visit: Yes Status: Chronic Assessment and Plan: Chronic. Pt. not currently on statin according to [facility] records. Lipid panel WNL. (6) Chronic constipation Current Visit: Yes Status: Chronic Assessment and Plan: Chronic, most likely d/t medications. Monitor I&O and continue patient's Bisacodyl, Colace and MiraLAX. (7) DVT prophylaxis Current Visit: Yes Status: Acute Assessment and Plan: RENAN carrero for DVT prophylaxis to avoid agitating pt. w/SQ injections. (8) Schizophrenia Current Visit: Yes Status: Chronic Assessment and Plan: Chronic. Current AMS may be d/t pt. not taking his medications for schizophrenia , however, [facility] be pt's baseline. Continue clozapine and perphenazine at bedtime, and Clozaril in a.m. Clonazepam has been started due to initiation of CIWA protocol. Pt appears to be alert and oriented and answers questions appropriately, but at times he interjects inappropriate things into conversation. In the morning he was discussing trigger avoidance, and the afternoon he was discussing plumbing. We will attempt to reach someone at [facility] for clarification tomorrow. Per psychiatry now, we should speak with someone at the [facility] regarding medication compliance in regards to starting the Clozaril at high-dose and possible resultant agranulocytosis (9) Leukocytosis Current Visit: Yes Status: Resolved Assessment and Plan: Resolved (10) Essential tremor Current Visit: Yes Status: Chronic Assessment and Plan: Hx of essential tremors. Continue pts. Cogentin. - Time Spent with Patient Total time spent is greater than 50% in coordination of care (as documented) at patient's floor/unit and/or counseling patient: less than 15 minutes Plan of Care Discussed with: patient Internal Medicine: Result - Labs CBC & Chem 7: 04/06/18 06:33 04/06/18 06:33 Labs: Short CBC 04/06/18 Range/Units 06:33 WBC 9.6 (4.3-11.1) K/mcL Hgb 12.5 L D (12.9-16.9) g/dL Hct 36.7 L (37.5-50.1) % Plt Count 227 (140-400) K/mcL Neutrophils # 6.2 (1.6-8.9) K/mcL BMP 04/06/18 06:33 Sodium 140 Potassium 3.0 L Chloride 114 H Carbon Dioxide 19 L BUN 6 Creatinine 0.45 L Glucose 91 Calcium 7.3 L Liver Function 04/06/18 Range/Units 06:33 Total Bilirubin 0.3 (0.3-1.0) mg/dL AST 16 (13-39) Units/L ALT 15 (7-52) Units/L Alkaline Phosphatase 95 (34-104) Units/L Albumin 3.4 L (3.5-5.7) g/dL - ABG Interpretation ABG results: PT/INR, D-dimer PT 11.8 Seconds (9.4-12.1) 04/05/18 10:16 - VTE Documentation of Mechanical Device: Graduated compression elastic hosiery Consult Discharge Plan - Plan [facility]errals: [facility] [Primary Care Provider] - (1) Altered mental status Qualifiers: Altered mental status type: unspecified Qualified Code(s): R41.82 - Altered mental status, unspecified (2) HTN (hypertension) Qualifiers: Hypertension type: essential hypertension Qualified Code(s): I10 - Essential (primary) hypertension (3) GERD (gastroesophageal reflux disease) Qualifiers: Esophagitis presence: esophagitis presence not specified Qualified Code(s): K21.9 - Gastro-esophageal reflux disease without esophagitis (4) Diabetes Qualifiers: Diabetes mellitus type: type 2 Diabetes mellitus watermelon inspector insulin use: unspecified prison insulin use status Diabetes mellitus complication status : with unspecified complications Qualified Code(s): E11.8 - Type 2 diabetes mellitus with unspecified complications (5) HLD (hyperlipidemia) Qualifiers: Hyperlipidemia type: pure hypercholesterolemia Qualified Code(s): E78.00 - Pure hypercholesterolemia, unspecified; E78.0 - Pure hypercholesterolemia (8) Schizophrenia Qualifiers: Schizophrenia type: other Qualified Code(s): F20.89 - Other schizophrenia; F20.8 - Other schizophrenia (9) Leukocytosis Qualifiers: Leukocytosis type: other Qualified Code(s): D72.828 - Other elevated white blood cell count
[2018-04-06] MEDS: Perphenazine 8 MG TABLET PO SCH (19:58)
[2018-04-07 05:18] LABS: Basophils % 0.4 %; Hematocrit 37.8 % (37.5-50.1); Hemoglobin 13.1 g/dL (12.9-16.9); Immature Granulocytes % 0.5 % (0-4); Lymphocytes # 2.2 K/mcL (0.6-4.6); Lymphocytes % 28.4 %; Mean Corpuscular HGB Conc 34.7 g/dL (31.6-35.5); Mean Corpuscular Volume 86.5 fL (83.0-100.0); Mean Platelet Volume 9.2 fL (9.4-12.4); Monocytes # 0.9 K/mcL (0.0-1.3); Monocytes % 11.7 %; Neutrophils # 4.6 K/mcL (1.6-8.9); Platelet Count 227 K/mcL (140-400); Red Blood Count 4.37 M/mcL (4.19-5.50); Red Cell Distribution Width 13.5 % (11.5-14.5)
[2018-04-07 05:53] LABS: Alanine Aminotransferase 18 Units/L (7-52); Albumin 4.5 g/dL (3.5-5.7); Albumin/Globulin Ratio 1.5 (1.1-2.2); Alkaline Phosphatase 127 Units/L (34-104); Aspartate Amino Transferase 18 Units/L (13-39); BUN/Creatinine Ratio 18 (6-26); Bilirubin,Total 0.4 mg/dL (0.3-1.0); Blood Urea Nitrogen 12 mg/dL (6-20); Calcium 9.5 mg/dL (8.6-10.3); Carbon Dioxide 23 mEq/L (23-29); Chloride 105 mEq/L (98-107); Glucose 109 mg/dL (70-105); Osmolality,Calculated 284 (280-300); Potassium 3.9 mEq/L (3.5-5.1); Sodium 137 mEq/L (136-145); Total Protein 7.5 g/dL (6.4-8.9); eGFR For Non-African Americans > 60 (> 60)
[2018-04-07] MEDS: Lisinopril 20 MG TABLET PO SCH (07:48)
[2018-04-07] MEDS: Famotidine 20 MG TABLET PO SCH ×2 (07:49→20:49)
[2018-04-07] MEDS: Thiamine (B-1) 100 MG TABLET PO SCH (07:49)
[2018-04-07] MEDS: cloZAPine 100 MG TABLET PO SCH ×2 (07:49→20:49)
[2018-04-07] MEDS: Aspirin Enteric Coated 81 MG Tablet PO SCH (07:49)
[2018-04-07] MEDS: Cholecalciferol (D-3) 1,000 UNIT TABLET PO SCH (07:51)
[2018-04-07] MEDS: Folic Acid 1 MG TABLET PO SCH (07:52)
[2018-04-07] MEDS: Multivit/Ca/Min/Fe/FA 1 TAB TABLET PO SCH (07:52)
[2018-04-07] MEDS: amLODIPine 5 MG TABLET PO SCH (07:53)
[2018-04-07] MEDS: Acetaminophen 325 MG TABLET PO PRN ×2 (08:00→14:59)
[2018-04-07] MEDS: Nicotine 21 MG PATCH.TD24 TD SCH (08:07)
--- NOTE | 2018-04-07 09:24 | Electrocardiograph Report ---
[place] [id number] Test Date: 2018-04-05 Pat Name: Rosendo Crandall Department: 104 Room: 3B12 Gender: M Plastic Extruding Machine Operator: LISA : 1960 Requested By: Sung Ambrocio Order Number: [id number] Reading MD: Antony Hodge Measurements Intervals [place] Rate: 96 P: 18 NC: 147 QRS: 55 QRSD: 98 T: 36 QT: 330 QTc: 384 Interpretive Statements SINUS RHYTHM NONSPECIFIC T-WAVE ABNORMALITY Electronically Signed On 04-07-2018 9:22:45 EDT by Antony Hodge
--- NOTE | 2018-04-07 15:43 | Internal Med Progress Note ---
Hospitalist Progress Note - Encounter Date of Encounter: 04/07/18 Time of Encounter: 07:50 - Subjective Interval History: Patient was seen and assessed at bedside at 07:50 AM. At times he is alert and oriented and, at other times he inserts and appropriate comments into conversation. Pt is definitely more confused than yesterday, but still answers questions appropriately. He denies headache, vision changes, nausea, vomiting, chest pain,or SOB. - Exam Vitals: Temp Pulse Resp BP Pulse Ox 98.0 F 89 17 150/91 96 04/07/18 15:18 04/07/18 15:18 04/07/18 15:18 04/07/18 15:18 04/07/18 15:18 Exam: General: Pt resting quietly on bed, no distress. Pt appears slightly unkempt. Skin: pwd, no rashes, lesions, redness Neurological: Pt is alert and awake, oriented x 3, Speech is clear, PERRLA, EOMI , no nystagmus, no pronator drift. strength equal x 4 extremities HEENT: mucous mumbranes moist, no conjuctival pallor Neck: supple, no tracheal deviation, no lymphadenopathy, tenderness, no thyromegaly Heart: S1S2 heard without gallops, clicks, murmurs, no bradycardia or tachycardia, pt has no peripheral edema, pedal and radial pulses palpable bilaterally. Lungs: clear throughout without wheezing, rales, or ronchi, respirations are unlabored Abdomen: soft and non tender with bowel sound present, no hepatomegaly. Psych: Normal affect with good eye contact - Assessment and Plan (1) Altered mental status Current Visit: Yes Status: Acute Assessment and Plan: Acute AMS. MRI of the head/brain ordered to rule out an infarct or ischemia, however, we are unable to reach anyone who will be able to help with MRI questions. Will attempt to clear with films, he already has a head CT and chest xray, KUB ordered. 04/07- patient continues to be altered, seemingly worse than yesterday. Patient does follow commands and answers questions appropriately, however he has flight of ideas, speaks constantly, speaks to himself. He denies auditory or visual hallucinations. Patient was recently started on Klonipin, it has been held. Falls/safety precautions and up with assist only. (2) HTN (hypertension) Current Visit: Yes Status: Chronic Assessment and Plan: Chronic. Continue patient's Norvasc and lisinopril. Well contolled. (3) GERD (gastroesophageal reflux disease) Current Visit: Yes Status: Chronic Assessment and Plan: Chronic. Continue home medications. (4) Diabetes Current Visit: Yes Status: Chronic Assessment and Plan: Hx [facility] DM [facility]. No current oral or insulin use. A1c 5.8. Continue hypoglycemic protocol. (5) HLD (hyperlipidemia) Current Visit: Yes Status: Chronic Assessment and Plan: Chronic. Pt. not currently on statin [facility] to [facility]. Lipid panel WNL. (6) Chronic constipation Current Visit: Yes Status: Chronic Assessment and Plan: Chronic, most likely d/t medications. Monitor I&O and continue patient's Bisacodyl, Colace and MiraLAX. (7) DVT prophylaxis Current Visit: Yes Status: Acute Assessment and Plan: RENAN carrero for DVT prophylaxis to avoid agitating pt. w/SQ injections. Encourage ambulation with assistance. (8) Schizophrenia Current Visit: Yes Status: Chronic Assessment and Plan: Chronic. Current AMS may be d/t pt. not taking his medications for schizophrenia , however, [facility] be pt's baseline. Continue clozapine and perphenazine at bedtime, and Clozaril in a.m. Pt appears to be alert and oriented and answers questions appropriately, but makes inappropriate statements and talks constantly. He has flight of ideas and actually appears to be more disoriented than yesterday. 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 We also are unable to reach family for verification of history. Psychiatry is following, we appreciate their recommendations. Continue to monitor CBC for agranulocytosis since we are unclear if he has been taking his Clozaril appropriately (9) Leukocytosis Current Visit: Yes Status: Resolved (10) Essential tremor Current Visit: Yes Status: Chronic Assessment and Plan: Hx of essential tremors. Continue pts. Cogentin. DVT Prophylaxis: as above. - Time Spent with Patient Total time spent is greater than 50% in coordination of care (as documented) at patient's floor/unit and/or counseling patient: less than 15 minutes Plan of Care Discussed with: nurse Internal Medicine: Result - Labs CBC & Chem 7: 04/07/18 04:40 04/07/18 04:40 Labs: Short CBC 04/07/18 Range/Units 04:40 WBC 7.8 (4.3-11.1) K/mcL Hgb 13.1 (12.9-16.9) g/dL Hct 37.8 (37.5-50.1) % Plt Count 227 (140-400) K/mcL Neutrophils # 4.6 (1.6-8.9) K/mcL BMP 04/07/18 04:40 Sodium 137 Potassium 3.9 D Chloride 105 Carbon Dioxide 23 BUN 12 Creatinine 0.67 L Glucose 109 H Calcium 9.5 Liver Function 04/07/18 Range/Units 04:40 Total Bilirubin 0.4 (0.3-1.0) mg/dL AST 18 (13-39) Units/L ALT 18 (7-52) Units/L Alkaline Phosphatase 127 H (34-104) Units/L Albumin 4.5 (3.5-5.7) g/dL - ABG Interpretation ABG results: PT/INR, D-dimer PT 11.8 Seconds (9.4-12.1) 04/05/18 10:16 - VTE Documentation of Mechanical Device: Graduated compression elastic hosiery Consult Discharge Plan - Plan [facility]errals: [facility] [Primary Care Provider] - (1) Altered mental status Qualifiers: Altered mental status type: unspecified Qualified Code(s): R41.82 - Altered mental status, unspecified (2) HTN (hypertension) Qualifiers: Hypertension type: essential hypertension Qualified Code(s): I10 - Essential (primary) hypertension (3) GERD (gastroesophageal reflux disease) Qualifiers: Esophagitis presence: esophagitis presence not specified Qualified Code(s): K21.9 - Gastro-esophageal reflux disease without esophagitis (4) Diabetes Qualifiers: Diabetes mellitus type: type 2 Diabetes mellitus 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
--- NOTE | 2018-04-07 16:59 | Consult Note ---
Date of Encounter: 04/07/18 Time of Encounter: 15:00 Assessment & Recommendation (1) Schizophrenia Current visit: Yes Status: Chronic Qualifiers: Schizophrenia type: disorganized schizophrenia Qualified Code(s): F20.1 - Disorganized schizophrenia History of Present Illness Patient: new to practice Requesting Physician: America Freire CNP Reason for consult: follow up History of present illness: Mr. Crandall is a 57 year old male consulted for follow up appointment. provider called me this AM stating he is more disorganized and has FOI . Today consulted him at his bed side ,patient has h/o Schizophrenia but no other collateral available. he is redirectable but easily distracted and has disorganized thought process and Flight of ideas , he was taliking about mother mike, he mostly repeated what i asked him, He states he has psychiatrist and now he has new one . he was oriented times 3, but has disorganization of thought process.Most of his speech is rather unintelligible. He mumbles and his thoughts are disorganized. No one at bedside to provide clarifying information. 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 He is aware that he takes medications for mental health reasons, patients baseline is unknown. A/P Schizophrenia rec to transfer to [place] inpatient for thought disorganization and overt delusions . continue his medications. Thank you for consult. CC: America Freire CNP Past Med Surg Social Fam HX - Past Medical History Medical history: COPD, diabetes, GERD, hyperlipidemia, hypertension, other - Past Psychiatric History Psychiatric history: Reports: schizophrenia Family psychiatric history: Unknown Family History of Suicide: Unknown - Past Surgical History Surgical History: non-contributory - Social History Smoking Status: Current every day smoker Alcohol use: unknown Drug use: unknown - Family History Father History Unknown: Yes Race: Family Member Ethnicity: Non- Living Status: Mother History Unknown: Yes Race: Family Member Ethnicity: Non- Living Status: Brother Race: Family Member Ethnicity: Non- Living Status: Cause of : Suicide Hx Family Psychosocial Disorders: Yes (Depression) Sister History Unknown: Yes Race: Family Member Ethnicity: Non- Living Status: Still Living Medications & Allergies Aspirin Enteric Coated [Aspirin EC] 81 mg PO DAILY 04/05/18 [History] Benztropine [Cogentin] 1 mg PO BID 04/05/18 [History] Bisacodyl [Woman's Laxative] 5 mg PO DAILY PRN 04/05/18 [History] Cholecalciferol (D-3) [Vitamin D] 3,000 unit PO DAILY 04/05/18 [History] Docusate [Colace] 100 mg PO BID 04/05/18 [History] Lisinopril [Zestril] 10 mg PO DAILY 04/05/18 [History] Multivitamin [One Daily Essential] 1 tab PO DAILY 04/05/18 [History] Perphenazine 28 mg PO HS 04/05/18 [History] Polyethylene Glycol 3350 [MiraLAX] 17 gm PO DAILY 04/05/18 [History] amLODIPine [Norvasc] 5 mg PO DAILY 04/05/18 [History] cloZAPine [Clozapine] 400 mg PO HS 04/05/18 [History] cloZAPine [Clozaril] 200 mg PO QAM 04/05/18 [History] clonazePAM [Klonopin] 1 mg PO HS PRN 04/05/18 [History] hydrOXYzine HCl [Hydroxyzine HCl] 50 mg PO HS PRN 04/05/18 [History] raNITIdine HCl [Zantac] 150 mg PO BID 04/05/18 [History] 3 Allergy/AdvReac Type Severity Reaction Status Date / Time bee venom protein (honey bee) Allergy Hives Verified 04/05/18 11:00 diphenhydramine AdvReac See Verified 04/05/18 11:00 [From Benadryl] Comments Review of Systems Psychiatric: Reports: difficulty concentrating Psychiatry Exam - Constitutional Vitals: Temp Pulse Resp BP Pulse Ox 98.0 F 89 17 150/91 96 04/07/18 15:18 04/07/18 15:18 04/07/18 15:18 04/07/18 15:18 04/07/18 15:18 General appearance: unkempt - Musculoskeletal Station: other Strength & Tone: normal for patient - Psychiatric Patient Orientation: Yes Person, Yes Time, Yes Place Level of alertness: Alert Behavior: distractible Eye Contact: No Eye Contact Mood Description: Euthymic/stable Affect description: blunted Speech Volume: Excessive Variation Speech pattern: disorganized Thought Process: Loose Associations, Flight of Ideas, Disorganized Thought Content: Yes Overt delusions Attention Span Ability: Unable to Sustain Attention Patient Reliability: Not Reliable Historian Fund of knowledge: Yes below average Intelligence Estimate: Below Average Judgment: Poor Insight: Minimal Results - Labs Labs: Laboratory Last Values WBC 7.8 K/mcL (4.3-11.1) 04/07/18 04:40 RBC 4.37 M/mcL (4.19-5.50) 04/07/18 04:40 Hgb 13.1 g/dL (12.9-16.9) 04/07/18 04:40 Hct 37.8 % (37.5-50.1) 04/07/18 04:40 MCV 86.5 fL (83.0-100.0) 04/07/18 04:40 MCH 30.0 pg (28.0-33.3) 04/07/18 04:40 MCHC 34.7 g/dL (31.6-35.5) 04/07/18 04:40 RDW 13.5 % (11.5-14.5) 04/07/18 04:40 Plt Count 227 K/mcL (140-400) 04/07/18 04:40 MPV 9.2 fL (9.4-12.4) L 04/07/18 04:40 Immature Gran % 0.5 % (0-4) 04/07/18 04:40 Seg Neutrophils % 59.0 % 04/07/18 04:40 Lymphocytes % 28.4 % 04/07/18 04:40 Monocytes % 11.7 % 04/07/18 04:40 Eosinophils % 0.0 % 04/07/18 04:40 Basophils % 0.4 % 04/07/18 04:40 Neutrophils # 4.6 K/mcL (1.6-8.9) 04/07/18 04:40 Lymphocytes # 2.2 K/mcL (0.6-4.6) 04/07/18 04:40 Monocytes # 0.9 K/mcL (0.0-1.3) 04/07/18 04:40 Eosinophils # 0.0 K/mcL (0.0-0.6) 04/07/18 04:40 Basophils # 0.0 K/mcL (0.0-0.2) 04/07/18 04:40 PT 11.8 Seconds (9.4-12.1) 04/05/18 10:16 INR 1.0 04/05/18 10:16 APTT 33.2 Seconds (26.0-36.0) 04/05/18 10:16 Sodium 137 mEq/L (136-145) 04/07/18 04:40 Potassium 3.9 mEq/L (3.5-5.1) D 04/07/18 04:40 Chloride 105 mEq/L (98-107) 04/07/18 04:40 Carbon Dioxide 23 mEq/L (23-29) 04/07/18 04:40 BUN 12 mg/dL (6-20) 04/07/18 04:40 Creatinine 0.67 mg/dL (0.70-1.30) L 04/07/18 04:40 Est GFR ( Amer) > 60 (> 60) 04/07/18 04:40 Est GFR (Non-Af Amer) > 60 (> 60) 04/07/18 04:40 BUN/Creatinine Ratio 18 (6-26) 04/07/18 04:40 Glucose 109 mg/dL (70-105) H 04/07/18 04:40 POC Glucose 96 mg/dL (70-99) 04/06/18 19:58 Est Mean Plasma Glucose 120 mg/dl 04/06/18 06:33 Hemoglobin A1c 5.8 % (-5.6) H 04/06/18 06:33 Calculated Osmolality 284 (280-300) 04/07/18 04:40 Lactic Acid 1.5 mmol/L (0.5-2.2) 04/05/18 10:16 Calcium 9.5 mg/dL (8.6-10.3) 04/07/18 04:40 Phosphorus 3.2 mg/dL (2.7-4.5) 04/06/18 06:33 Magnesium 1.6 mg/dL (1.6-2.6) 04/06/18 06:33 Total Bilirubin 0.4 mg/dL (0.3-1.0) 04/07/18 04:40 Direct Bilirubin 0.1 mg/dL (0.0-0.2) 04/05/18 10:16 Indirect Bilirubin 0.3 mg/dL (0.0-1.2) 04/05/18 10:16 AST 18 Units/L (13-39) 04/07/18 04:40 ALT 18 Units/L (7-52) 04/07/18 04:40 Alkaline Phosphatase 127 Units/L (34-104) H 04/07/18 04:40 Ammonia 42 mcmol/L (16-53) 04/05/18 10:16 Troponin I < 0.03 ng/mL (< 0.04) 04/05/18 10:16 Serum Total Protein 7.5 g/dL (6.4-8.9) 04/07/18 04:40 Albumin 4.5 g/dL (3.5-5.7) 04/07/18 04:40 Globulin 3.0 g/dL (2.4-3.5) 04/07/18 04:40 Albumin/Globulin Ratio 1.5 (1.1-2.2) 04/07/18 04:40 Triglycerides 118 mg/dL (< 150) 04/06/18 06:33 Cholesterol 115 mg/dL (< 200) 04/06/18 06:33 LDL Cholesterol, Calc 65 mg/dL (0-99) 04/06/18 06:33 VLDL Cholesterol, Calc 24 mg/dL (< 31) 04/06/18 06:33 HDL Cholesterol 26 mg/dL (40-59) L 04/06/18 06:33 Cholesterol/HDL Ratio 4.4 (0-4.9) 04/06/18 06:33 TSH 0.180 mcIU/mL (0.340-5.600) L 04/05/18 10:16 Urine Color Yellow (Yellow) 04/05/18 11:05 Urine Clarity Clear (Clear) 04/05/18 11:05 Urine pH 8.0 pH Units (5.0-8.0) 04/05/18 11:05 Ur Specific [place] 1.009 (1.010-1.025) L 04/05/18 11:05 Urine Protein Negative mg/dL (Neg-Trace) 04/05/18 11:05 Urine Glucose (UA) Normal mg/dL (Normal) 04/05/18 11:05 Urine Ketones Negative mg/dL (Negative) 04/05/18 11:05 Urine Blood Negative (Negative) 04/05/18 11:05 Urine Nitrite Negative (Negative) 04/05/18 11:05 Urine Bilirubin Negative (Negative) 04/05/18 11:05 Urine Urobilinogen Normal mg/dL (Normal) 04/05/18 11:05 Ur Leukocyte Esterase Small (Negative) H 04/05/18 11:05 Urine Microscopic RBC 3-5 per hpf (0-3) H 04/05/18 11:05 Urine Microscopic WBC 0-3 per hpf (0-3) 04/05/18 11:05 Ur Squamous Epith Cells Many per lpf (None-Few) H 04/05/18 11:05 Urine Bacteria None Seen per hpf (None-Few) 04/05/18 11:05 Hyaline Casts None Seen per lpf (None-Few) 04/05/18 11:05 Ur Culture Indicated? NO. (NO) A 04/05/18 11:05 Salicylates < 2.5 mg/dL (15.0-30.0) L 04/05/18 10:16 Urine Opiates Screen Negative ng/mL (Ypevkv=646) 04/05/18 11:05 Acetaminophen < 10 mcg/mL (10-20) L 04/05/18 10:16 Ur Barbiturates Screen Negative ng/mL (Htojaq=598) 04/05/18 11:05 Ur Phencyclidine Scrn Negative ng/mL (Cutoff=25) 04/05/18 11:05 Ur Amphetamines Screen Negative ng/mL (Umelji=1696) 04/05/18 11:05 U Benzodiazepines Scrn Negative ng/mL (Zpdsrl=365) 04/05/18 11:05 Urine Cocaine Screen Negative ng/mL (Cutoff= 300) 04/05/18 11:05 U Marijuana (THC) Screen Negative ng/mL (Cutoff = 50) 04/05/18 11:05 Ur Drug Screen Interp See Below 04/05/18 11:05 Ethyl Alcohol < 10 mg/dL (Less than 10) 04/05/18 10:16 - Impressions Impressions KUB X-Ray 04/07/18 15:45 IMPRESSION: No metallic foreign bodies are seen in the abdomen/pelvis to preclude MRI. D/ / Madhav Heath MD / Madhav Heath MD Interpreting Provider: Madhav Heath MD Consult Discharge Plan - Plan [facility]errals: [facility] [Primary Care Provider] -
[2018-04-07] MEDS: Perphenazine 8 MG TABLET PO SCH (20:49)
[2018-04-08 05:30] LABS: Basophils % 0.4 %; Hematocrit 38.7 % (37.5-50.1); Hemoglobin 13.4 g/dL (12.9-16.9); Immature Granulocytes % 0.5 % (0-4); Lymphocytes # 2.4 K/mcL (0.6-4.6); Lymphocytes % 29.8 %; Mean Corpuscular HGB Conc 34.6 g/dL (31.6-35.5); Mean Corpuscular Hemoglobin 30.5 pg (28.0-33.3); Mean Platelet Volume 9.2 fL (9.4-12.4); Monocytes # 0.9 K/mcL (0.0-1.3); Monocytes % 11.2 %; Neutrophils # 4.7 K/mcL (1.6-8.9); Platelet Count 221 K/mcL (140-400); Red Cell Distribution Width 13.3 % (11.5-14.5); Segmented Neutrophils % 58.1 %
[2018-04-08 05:55] LABS: Alanine Aminotransferase 20 Units/L (7-52); Albumin 4.4 g/dL (3.5-5.7); Albumin/Globulin Ratio 1.6 (1.1-2.2); Alkaline Phosphatase 117 Units/L (34-104); Aspartate Amino Transferase 18 Units/L (13-39); BUN/Creatinine Ratio 20 (6-26); Bilirubin,Total 0.4 mg/dL (0.3-1.0); Blood Urea Nitrogen 14 mg/dL (6-20); Calcium 9.4 mg/dL (8.6-10.3); Carbon Dioxide 23 mEq/L (23-29); Chloride 106 mEq/L (98-107); Globulin 2.7 g/dL (2.4-3.5); Glucose 108 mg/dL (70-105); Osmolality,Calculated 287 (280-300); Potassium 4.1 mEq/L (3.5-5.1); Sodium 138 mEq/L (136-145); Total Protein 7.1 g/dL (6.4-8.9); eGFR For Non-African Americans > 60 (> 60)
[2018-04-08] MEDS: Multivit/Ca/Min/Fe/FA 1 TAB TABLET PO SCH (10:37)
[2018-04-08] MEDS: Lisinopril 20 MG TABLET PO SCH (10:37)
[2018-04-08] MEDS: Famotidine 20 MG TABLET PO SCH (10:38)
[2018-04-08] MEDS: Cholecalciferol (D-3) 1,000 UNIT TABLET PO SCH (10:38)
[2018-04-08] MEDS: Folic Acid 1 MG TABLET PO SCH (10:38)
[2018-04-08] MEDS: Thiamine (B-1) 100 MG TABLET PO SCH (10:38)
[2018-04-08] MEDS: amLODIPine 5 MG TABLET PO SCH (10:38)
[2018-04-08] MEDS: cloZAPine 100 MG TABLET PO SCH (10:39)
[2018-04-08] MEDS: Aspirin Enteric Coated 81 MG Tablet PO SCH (10:41)
--- NOTE | 2018-04-08 11:58 | Internal Med Progress Note ---
Hospitalist Progress Note - Encounter Date of Encounter: 04/08/18 Time of Encounter: 11:56 - Subjective Interval History: Patient seen and examined at bedside today. Continues to have word salad flights of ideas. He is unable to participate in exam. - Exam Vitals: Temp Pulse Resp BP Pulse Ox 98.3 F 95 15 148/80 95 04/08/18 10:30 04/08/18 10:30 04/08/18 10:30 04/08/18 10:30 04/08/18 10:30 Exam: PHYSICAL EXAMINATION: GENERAL: The patient is a well-developed, well-nourished male in no apparent distress. He is alert to self and sometimes place, disoriented to situation and unable to be reoriented HEENT: Head is normocephalic and atraumatic. Extraocular muscles are intact. Pupils are equal, round, and reactive to light and accommodation. NECK: Supple. No carotid bruits. No lymphadenopathy or thyromegaly. LUNGS: Clear to auscultation. HEART: Regular rate and rhythm without murmur. ABDOMEN: Soft, nontender, and nondistended. Positive bowel sounds. No hepatosplenomegaly was noted. EXTREMITIES: Without any cyanosis, clubbing, rash, lesions or edema. NEUROLOGIC: No facial droop or slurred speech PSYCHIATRIC: Denies any suicidal or homicidal ideation, has word salad and disorganized thoughts as well as flights of ideas, overall the patient appears to be calm, no agitation or anxiety noted SKIN: No ulceration or induration present. - Assessment and Plan (1) Altered mental status Current Visit: Yes Status: Acute Assessment and Plan: Altered mental status, etiology unclear Patient is schizophrenic and lives in the apartments and has been taking care of his antipsychotic medications There is concern that he has not been taking his medications appropriately Since admission he has continued to exhibit disorganized thought process, flight of ideas and word salad, speech is unintelligible most times Proceed with MRI of head/brain to rule out acute infarct or ischemia Psychiatry seeing in consultation--recommendations to continue antipsychotics, continue to hold Klonopin. Recommendations are to transfer to [facility] inpatient psych due to disorganized thoughts and overt delusions--I have discussed this with the nurse navigator who will call [facility] psych consult of transfer---4 hospital course, remained stable--transfer pending results of MRI Falls/safety precautions and up with assist only. (2) Schizophrenia Current Visit: Yes Status: Chronic Assessment and Plan: Chronic. Current AMS may be d/t pt. not taking his medications for schizophrenia , however, notes from the [facility] indicate that this may be pt's baseline. 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 unable to reach family for verification of history. Psychiatry is following--see above Continue to monitor CBC for agranulocytosis since we are unclear if he has been taking his Clozaril appropriately (3) HTN (hypertension) Current Visit: Yes Status: Chronic Assessment and Plan: Stable, continue current anti-HTN medications (4) GERD (gastroesophageal reflux disease) Current Visit: Yes Status: Chronic (5) Diabetes Current Visit: Yes Status: Chronic Assessment and Plan: History of DM, hemoglobin A1c 5.8. Blood glucose remained stable, not on oral hypoglycemics or insulin. Continue to monitor and add medications if necessary. (6) HLD (hyperlipidemia) Current Visit: Yes Status: Chronic (7) Chronic constipation Current Visit: Yes Status: Chronic Assessment and Plan: History of chronic constipation, most likely due to psychiatric medications. Last bowel movement . Continue to monitor JEANNA and continue bisacodyl Colace and MiraLAX. (8) Leukocytosis Current Visit: Yes Status: Resolved Assessment and Plan: Resolved (9) Essential tremor Current Visit: Yes Status: Chronic Assessment and Plan: History of essential tremors, likely due to psychiatric medications, continue Cogentin (10) DVT prophylaxis Current Visit: Yes Status: Acute Assessment and Plan: Continue RENAN hose for DVT prophylaxis, encourage increasing activity - Time Spent with Patient Total time spent is greater than 50% in coordination of care (as documented) at patient's floor/unit and/or counseling patient: less than 15 minutes Plan of Care Discussed with: patient Internal Medicine: Result - Labs CBC & Chem 7: 04/08/18 05:17 04/08/18 05:17 Labs: Short CBC 04/08/18 Range/Units 05:17 WBC 8.1 (4.3-11.1) K/mcL Hgb 13.4 (12.9-16.9) g/dL Hct 38.7 (37.5-50.1) % Plt Count 221 (140-400) K/mcL Neutrophils # 4.7 (1.6-8.9) K/mcL BMP 04/08/18 05:17 Sodium 138 Potassium 4.1 Chloride 106 Carbon Dioxide 23 BUN 14 Creatinine 0.69 L Glucose 108 H Calcium 9.4 Liver Function 04/08/18 Range/Units 05:17 Total Bilirubin 0.4 (0.3-1.0) mg/dL AST 18 (13-39) Units/L ALT 20 (7-52) Units/L Alkaline Phosphatase 117 H (34-104) Units/L Albumin 4.4 (3.5-5.7) g/dL - ABG Interpretation ABG results: PT/INR, D-dimer PT 11.8 Seconds (9.4-12.1) 04/05/18 10:16 - Impressions Impressions KUB X-Ray 04/07/18 15:45 IMPRESSION: No metallic foreign bodies are seen in the abdomen/pelvis to preclude MRI. D/ / Madhav Heath MD / Madhav Heath MD Interpreting Provider: Madhav Heath MD - VTE Documentation of Mechanical Device: Graduated compression elastic hosiery Consult Discharge Plan - Plan [facility]errals: [facility] [Primary Care Provider] - (1) Altered mental status Qualifiers: Altered mental status type: unspecified Qualified Code(s): R41.82 - Altered mental status, unspecified (2) Schizophrenia Qualifiers: Schizophrenia type: disorganized schizophrenia Qualified Code(s): F20.1 - Disorganized schizophrenia (3) HTN (hypertension) Qualifiers: Hypertension type: essential hypertension Qualified Code(s): I10 - Essential (primary) hypertension (4) GERD (gastroesophageal reflux disease) Qualifiers: Esophagitis presence: esophagitis presence not specified Qualified Code(s): K21.9 - Gastro-esophageal reflux disease without esophagitis (5) Diabetes Qualifiers: Diabetes mellitus type: type 2 Diabetes mellitus terminal clerk insulin use: unspecified terminal clerk insulin use status Diabetes mellitus complication status : with unspecified complications Qualified Code(s): E11.8 - Type 2 diabetes mellitus with unspecified complications (6) HLD (hyperlipidemia) Qualifiers: Hyperlipidemia type: pure hypercholesterolemia Qualified Code(s): E78.00 - Pure hypercholesterolemia, unspecified; E78.0 - Pure hypercholesterolemia (8) Leukocytosis Qualifiers: Leukocytosis type: other Qualified Code(s): D72.828 - Other elevated white blood cell count
[2018-04-08] MEDS: Nicotine 21 MG PATCH.TD24 TD SCH (12:00)
[2018-04-08 16:12] VITALS: BP 133/84
--- NOTE | 2018-04-08 16:48 | Discharge Summary ---
- NOTES TO OUTPATIENT PROVIDER Notes to Outpatient Provider: no pending studies. Presented with altered mental status; history of schizophrenia, I believe that the patient has not been compliant with his medication regimen. Lives alone at [facility] [address] and is responsible for medication administration. However, patient unable to confirm whether or not he has been compliant. Has undergone a psychological evaluation while inpatient with recommendations for discharged to [facility] inpatient psychiatric unit to resume antipsychotics and for further monitoring and evaluation Date of Encounter: 04/08/18 Time of Encounter: 16:46 - Discharge Diagnosis (1) Altered mental status Priority: Primary Status: Acute Assessment and Plan: Altered mental status, etiology unclear Patient is schizophrenic and lives in the [place] apartments and has been self administering his antipsychotic medications There is concern that he has not been taking his medications appropriately or at all Since admission he has continued to exhibit disorganized thought process, flight of ideas and word salad, speech is unintelligible most times MRI of brain negative for cutaneous cranial abnormality or infarct. Few scattered foci of supratentorial white matter signal abnormalities that are nonspecific Psychiatry seeing in consultation--recommendations to continue antipsychotics, and Klonopin Recommendations are to transfer to [facility] inpatient psych due to disorganized thoughts and overt delusions--patient is to transfer to the psych tonight Falls/safety precautions and up with assist only. Qualifiers: Altered mental status type: unspecified Qualified Code(s): R41.82 - Altered mental status, unspecified (2) Schizophrenia Priority: Secondary Status: Chronic Assessment and Plan: Chronic. Current AMS may be d/t pt. not taking his medications for schizophrenia , however, notes from the [facility] indicate that this may be pt's baseline. 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 unable to reach family for verification of history. Psychiatry is following--see above Continue to monitor CBC for agranulocytosis since we are unclear if he has been taking his Clozaril appropriately Qualifiers: Schizophrenia type: disorganized schizophrenia Qualified Code(s): F20.1 - Disorganized schizophrenia (3) HTN (hypertension) Priority: Secondary Status: Chronic Assessment and Plan: Stable, continue current anti-HTN medications Qualifiers: Hypertension type: essential hypertension Qualified Code(s): I10 - Essential (primary) hypertension (4) GERD (gastroesophageal reflux disease) Priority: Secondary Status: Chronic Assessment and Plan: Chronic. Continue home medications. Qualifiers: Esophagitis presence: esophagitis presence not specified Qualified Code(s) : K21.9 - Gastro-esophageal reflux disease without esophagitis (5) Diabetes Priority: Secondary Status: Chronic Assessment and Plan: History of DM, hemoglobin A1c 5.8. Blood glucose remained stable, not on oral hypoglycemics or insulin. Continue to monitor and add medications if necessary. Qualifiers: Diabetes mellitus type: type 2 Diabetes mellitus mcfp insulin use: unspecified mcfp insulin use status Diabetes mellitus complication status : with unspecified complications Qualified Code(s): E11.8 - Type 2 diabetes mellitus with unspecified complications (6) HLD (hyperlipidemia) Priority: Secondary Status: Chronic Assessment and Plan: Chronic. Pt. not currently on statin according to [facility] records. Lipid panel WNL. Qualifiers: Hyperlipidemia type: pure hypercholesterolemia Qualified Code(s): E78.00 - Pure hypercholesterolemia, unspecified; E78.0 - Pure hypercholesterolemia (7) Chronic constipation Priority: Secondary Status: Chronic Assessment and Plan: History of chronic constipation, most likely due to psychiatric medications. Last bowel movement he. Continue to monitor JEANNA and continue bisacodyl Colace and MiraLAX. (8) Leukocytosis Priority: Secondary Status: Resolved Qualifiers: Leukocytosis type: other Qualified Code(s): D72.828 - Other elevated white blood cell count (9) Essential tremor Priority: Secondary Status: Chronic Assessment and Plan: History of essential tremors, likely due to psychiatric medications, continue Cogentin (10) DVT prophylaxis Priority: Secondary Status: Acute Hospital course: Mr. Crandall is a 57 year old male Altered mental status, etiology unclear Patient is schizophrenic and lives in the [place] and has been self administering his antipsychotic medications There is concern that he has not been taking his medications appropriately or at all Since admission he has continued to exhibit disorganized thought process, flight of ideas and word salad, speech is unintelligible most times MRI of brain negative for cutaneous cranial abnormality or infarct. Few scattered foci of supratentorial white matter signal abnormalities that are nonspecific Psychiatry seeing in consultation--recommendations to continue antipsychotics, and Klonopin Recommendations are to transfer to [facility] inpatient psych due to disorganized thoughts and overt delusions--patient is to transfer to the psych tonight Discharge discussed with: patient - Time Spent with Patient Total time spent providing and/or coordinating discharge services: Less than 30 minutes - Discharge Medications Home Medications: Aspirin Enteric Coated [Aspirin EC] 81 mg PO DAILY 04/05/18 [History] Benztropine [Cogentin] 1 mg PO BID 04/05/18 [History] Bisacodyl [Woman's Laxative] 5 mg PO DAILY PRN 04/05/18 [History] Cholecalciferol (D-3) [Vitamin D] 3,000 unit PO DAILY 04/05/18 [History] Docusate [Colace] 100 mg PO BID 04/05/18 [History] Lisinopril [Zestril] 10 mg PO DAILY 04/05/18 [History] Multivitamin [One Daily Essential] 1 tab PO DAILY 04/05/18 [History] Perphenazine 28 mg PO HS 04/05/18 [History] Polyethylene Glycol 3350 [MiraLAX] 17 gm PO DAILY 04/05/18 [History] amLODIPine [Norvasc] 5 mg PO DAILY 04/05/18 [History] cloZAPine [Clozapine] 400 mg PO HS 04/05/18 [History] cloZAPine [Clozaril] 200 mg PO QAM 04/05/18 [History] clonazePAM [Klonopin] 1 mg PO HS PRN 04/05/18 [History] hydrOXYzine HCl [Hydroxyzine HCl] 50 mg PO HS PRN 04/05/18 [History] raNITIdine HCl [Zantac] 150 mg PO BID 04/05/18 [History] Allergies/Adverse Reactions: 3 Allergy/AdvReac Type Severity Reaction Status Date / Time bee venom protein (honey bee) Allergy Hives Verified 04/05/18 11:00 diphenhydramine AdvReac See Verified 04/05/18 11:00 [From Benadryl] Comments Date of admission: 04/05/18 13:26 [facility] care physician[facility] Consults: 04/05/18 13:32 Consult to Psychiatry [CONS] Routine Consulting Provider: [facility] [place] Reason consult: Altered mental status Other reason and/or additional details: Pt. diagnosed w/schizophrenia in 21' s. [facility] Pt. provides little intelligible information on exam d/t word salad. Unclear if pt. has been compliant in taking his medications. Call Completed: Yes Discharging clinician: Raffaele Cary Anticipated date of discharge: 04/08/18 - Constitutional Vitals: Temp Pulse Resp BP Pulse Ox 98.0 F 82 15 133/84 95 04/08/18 16:11 04/08/18 16:11 04/08/18 16:11 04/08/18 16:11 04/08/18 16:11 General appearance: Present: A&O X 1, disheveled, no acute distress, obese, answers questions appropriately Exam: PHYSICAL EXAMINATION: GENERAL: The patient is a well-developed, well-nourished male in no apparent distress. He is alert to self and sometimes place, disoriented to situation and unable to be reoriented HEENT: Head is normocephalic and atraumatic. Extraocular muscles are intact. Pupils are equal, round, and reactive to light and accommodation. NECK: Supple. No carotid bruits. No lymphadenopathy or thyromegaly. LUNGS: Clear to auscultation. HEART: Regular rate and rhythm without murmur. ABDOMEN: Soft, nontender, and nondistended. Positive bowel sounds. No hepatosplenomegaly was noted. EXTREMITIES: Without any cyanosis, clubbing, rash, lesions or edema. NEUROLOGIC: No facial droop or slurred speech PSYCHIATRIC: Denies any suicidal or homicidal ideation, has word salad and disorganized thoughts as well as flights of ideas, overall the patient appears to be calm, no agitation or anxiety noted SKIN: No ulceration or induration present. - Patient Status Disposition: Transfer Psychiatric Hosp Condition: Fair Functional capacity at discharge: independent ambulation Overall status at discharge: patient is not back to baseline - Discharge Instructions Follow Up With: [facility] [Primary Care Provider] - - Diet and Activity Activity: other Diet: advance to your usual diet - VTE Documentation of Mechanical Device: Graduated compression elastic hosiery
== END 2018-04-08 17:35 | DRG 885 ==
LOC: 3BNU 10:06 → EMEROO 10:06 → 3BNU 13:48
PROVIDERS: ADMIT Internal Medicine; ATTEND Registered Nurse

== ENCOUNTER 2022-04-10 21:57 | Inpatient (IN) ==
[2022-04-10 22:40] LABS: Basophils % 0.2 %; Hematocrit 41.9 % (37.5-50.1); Hemoglobin 13.9 g/dL (12.9-16.9); Immature Granulocytes % 0.3 % (0-4); Lymphocytes # 2.8 K/mcL (0.6-4.6); Lymphocytes % 28.1 %; Mean Corpuscular HGB Conc 33.2 g/dL (31.6-35.5); Mean Corpuscular Hemoglobin 30.2 pg (28.0-33.3); Mean Corpuscular Volume 91.1 fL (83.0-100.0); Mean Platelet Volume 10.8 fL (9.4-12.4); Monocytes # 1.3 K/mcL (0.0-1.3); Monocytes % 13.1 %; Neutrophils # 5.9 K/mcL (1.6-8.9); Platelet Count 186 K/mcL (140-400); Red Cell Distribution Width 13.2 % (11.5-14.5); Segmented Neutrophils % 58.3 %; White Blood Count 10.1 K/mcL (4.3-11.1)
[2022-04-10 23:07] LABS: BUN/Creatinine Ratio 20 (6-26); Blood Urea Nitrogen 17 mg/dL (8-23); Calcium 8.8 mg/dL (8.6-10.3); Carbon Dioxide 22 mEq/L (23-29); Chloride 102 mEq/L (98-107); Glucose 299 mg/dL (70-105); Osmolality,Calculated 293 (280-300); Sodium 135 mEq/L (136-145)
[2022-04-10 23:09] LABS: Troponin I < 0.03 ng/mL (< 0.04)
[2022-04-10] MEDS ORDERED: Iopamidol - 370 500 ML MLS IVP ONE (23:24)
[2022-04-11 00:26] LABS: Influenza A PCR Negative (Negative); Influenza B PCR Negative (Negative); Resp. Syncytial Virus PCR Negative (Negative)
[2022-04-11 00:29] LABS: SARS-CoV-2 by PCR (In House) Positive (Negative)
[2022-04-11] MEDS ORDERED: Ondansetron 4 MG/2 ML VIAL IVP PRN (00:55)
[2022-04-11] MEDS ORDERED: Naloxone 0.4 MG/ML INJ IVP PRN (00:55)
[2022-04-11] MEDS ORDERED: Acetaminophen 325 MG TABLET PO PRN ×2 (00:55→10:39)
[2022-04-11] MEDS ORDERED: *HR* Dextrose 50 % in Water (Syg) 50 ML SYRINGE IVP PRN (01:58)
[2022-04-11] MEDS ORDERED: D5% in Water 1,000 ML IVC PRN (01:58)
[2022-04-11] MEDS ORDERED: Dextrose Gel 15 GM/37.5 ML TUBE PO PRN ×2 (01:58)
[2022-04-11 03:25] LABS: Hematocrit 43.6 % (37.5-50.1); Hemoglobin 14.4 g/dL (12.9-16.9); Mean Corpuscular Hemoglobin 29.8 pg (28.0-33.3); Mean Corpuscular Volume 90.3 fL (83.0-100.0); Mean Platelet Volume 10.7 fL (9.4-12.4); Platelet Count 182 K/mcL (140-400); Red Blood Count 4.83 M/mcL (4.19-5.50); Red Cell Distribution Width 13.1 % (11.5-14.5); White Blood Count 8.2 K/mcL (4.3-11.1)
[2022-04-11 03:47] LABS: BUN/Creatinine Ratio 20 (6-26); Blood Urea Nitrogen 16 mg/dL (8-23); C-Reactive Protein 104 mg/L (Less than 10); Calcium 9.4 mg/dL (8.6-10.3); Carbon Dioxide 24 mEq/L (23-29); Chloride 101 mEq/L (98-107); Glucose 231 mg/dL (70-105); Lactate Dehydrogenase 147 Units/L (140-271); Osmolality,Calculated 293 (280-300); Potassium 3.9 mEq/L (3.5-5.1); Sodium 137 mEq/L (136-145)
[2022-04-11 04:05] LABS: Ferritin 86 ng/mL (20-250)
[2022-04-11] MEDS: *HR* Enoxaparin 40 MG/0.4 ML SYRINGE SQ SCH (05:59)
[2022-04-11] MEDS: Insulin LISPRO 300 UNITS/3 ML VIAL SUBQ SCH ×3 (10:03→17:08)
[2022-04-11] MEDS ORDERED: Benzonatate 100 MG CAPSULE PO PRN (11:33)
[2022-04-11] MEDS: Aspirin Enteric Coated 81 MG Tablet PO SCH (12:15)
[2022-04-11] MEDS: Famotidine 20 MG TABLET PO SCH (12:15)
[2022-04-11] MEDS: polyethylene glycoL 3350 17 GM POWD.PACK PO SCH (12:15)
[2022-04-11] MEDS ORDERED: cloZAPine 100 MG TABLET PO SCH (21:00)
[2022-04-11] MEDS ORDERED: Insulin DETEMIR 100 UNIT/ML X5UNITS SUBQ SCH (21:00)
[2022-04-11] MEDS ORDERED: Melatonin 3 MG TABLET PO SCH (21:00)
[2022-04-11] MEDS ORDERED: QUEtiapine Fumarate 25 MG TABLET PO SCH (21:00)
[2022-04-11] MEDS: Sennosides/Docusate Sodium TABLET PO SCH (21:03)
[2022-04-11] MEDS: FluPHENAZine 10 MG TABLET PO SCH (21:04)
[2022-04-12 06:12] LABS: Basophils % 0.1 %; Hematocrit 40.3 % (37.5-50.1); Hemoglobin 13.3 g/dL (12.9-16.9); Immature Granulocytes % 0.6 % (0-4); Lymphocytes # 2.1 K/mcL (0.6-4.6); Mean Corpuscular Hemoglobin 29.8 pg (28.0-33.3); Mean Corpuscular Volume 90.2 fL (83.0-100.0); Mean Platelet Volume 10.7 fL (9.4-12.4); Monocytes # 0.8 K/mcL (0.0-1.3); Monocytes % 7.5 %; Neutrophils # 7.9 K/mcL (1.6-8.9); Platelet Count 213 K/mcL (140-400); Red Blood Count 4.47 M/mcL (4.19-5.50); Red Cell Distribution Width 12.6 % (11.5-14.5); Segmented Neutrophils % 72.8 %; White Blood Count 10.8 K/mcL (4.3-11.1)
[2022-04-12] MEDS: *HR* Enoxaparin 40 MG/0.4 ML SYRINGE SQ SCH (06:25)
[2022-04-12 06:29] LABS: BUN/Creatinine Ratio 26 (6-26); Blood Urea Nitrogen 18 mg/dL (8-23); Calcium 8.9 mg/dL (8.6-10.3); Carbon Dioxide 19 mEq/L (23-29); Chloride 99 mEq/L (98-107); Glucose 202 mg/dL (70-105); Osmolality,Calculated 284 (280-300); Phosphorous 3.5 mg/dL (2.7-4.5); Potassium 4.2 mEq/L (3.5-5.1); Sodium 133 mEq/L (136-145)
[2022-04-12 09:09] LABS: Estimated Average Glucose 272 mg/dl; Hemoglobin A1C 11.1 %
[2022-04-12] MEDS: Famotidine 20 MG TABLET PO SCH (09:09)
[2022-04-12] MEDS: Aspirin Enteric Coated 81 MG Tablet PO SCH (09:09)
[2022-04-12] MEDS: Sennosides/Docusate Sodium TABLET PO SCH (09:09)
[2022-04-12] MEDS: FluPHENAZine 10 MG TABLET PO SCH (09:10)
[2022-04-12] MEDS: polyethylene glycoL 3350 17 GM POWD.PACK PO SCH (09:10)
[2022-04-12 10:16] VITALS: BP 166/89; PULSE 71; TEMP 97.1; O2SAT 95
[2022-04-12] MEDS: Insulin LISPRO 300 UNITS/3 ML VIAL SUBQ SCH (12:12)
== END 2022-04-12 17:35 | DRG 177 ==
LOC: 2NENU 21:57 → EMEROOARM 21:57 → SUATTDRO 04-11 01:31 → 2NENU 04-11 01:46
PROVIDERS: ADMIT Student in an Organized Health Care Education/Training Program; ATTEND Internal Medicine